=== PATIENT | female | born 1965 | race Caucasian/White ===

== ENCOUNTER 2020-04-24 09:07 | Emergency (ER) | payer OTHER, SELFPAY ==
[2020-04-24 09:20] VITALS: BP 129/72; PULSE 73; RESP 16; TEMP 36.8; O2SAT 99; BMI 23.1
--- NOTE | 2020-04-24 09:27 | ED.RECABL ---
HPI - Recheck/Abnormal Lab/Rx General Chief Complaint: Recheck/Abnormal Lab/Rx Stated Complaint: med refill Time Seen by Provider: 04/24/20 09:26 Source: patient Mode of arrival: ambulatory Limitations: no limitations History of Present Illness HPI narrative: 54 y/o female with history of depression, substance abuse on suboxone who ran out of her Effexor 4 days ago. She reports nausea, increased depression, lethargy, intermittent dizziness and not being right in the head due to not being on the medication. She has experienced withdrawal from Effexor before and says this feels similar. She has an virtual appointment at 2pm today with a provider to refill her Effexor. She did not want to want until this evening to get a dose. She is seeking a 1x dose of her Effexor 150mg. She denies SI, AH, VH. complaint: medication refill request Onset/Timin Initial visit (ago): day(s) Returns today for: request for prescription Description of abnormal result: Context: ran out of medication Associated symptoms: nausea and other (dizziness, confusion, depression) Related Data Allergies Allergy/AdvReac Type Severity Reaction Status Date / Time No Known Allergies Allergy Unverified 01/30/20 17:02 Review of Systems Review of Systems: Constitutional: No Fever, No Chills Gastrointestinal: + Nausea, No Vomiting, No Diarrhea Genitourinary: No Dysuria, No Urinary Frequency, No Hematuria Musculoskeletal: No joint pain, + Myalgias Skin: No Skin Lesions, No rash Neuro: No Weakness, No Numbness, + Dizziness, + Headache Psych: + Anxiety/Panic, + Depression PMFSH Past Medical History Attestation statement: The following information was validated with the patient. Medical History Depression Drug abuse Surgical History (Updated 04/24/20 @ 09:27 by Bella Lugo) H/O tubal ligation Previous section Social History Social History Advance Directives: No Advance Directives Information Provided: No Physical Exam Vital Signs: Vital Signs: Last Vital Signs Temp 98.3 F 04/24/20 09:20 Pulse 59 04/24/20 10:00 Resp 14 04/24/20 10:00 BP 109/70 04/24/20 10:00 Pulse Ox 98 04/24/20 10:00 Body Mass Index 23.1 Appearance: Alert. Oriented X3. No acute distress. Eyes: Pupils equal, round and reactive to light. ENT: Pharynx normal. Neck: Normal inspection. CVS: Normal heart rate and rhythm. Pulses normal. Respiratory: No respiratory distress. Breath sounds normal. Skin: Skin warm and dry. Normal skin color. Normal skin turgor. No rashes. Extremities: No lower extremity edema. Neuro: Oriented X 3. No motor deficit. No sensory deficit. Psych: tearful at times, good insight, no SI/HI, no VH/AH. Course Course Course Narrative: 54 y/o female presenting with Effexor withdrawal after 4 days without medication. Time frame is safe to administer full dose of 150 mg now. She is not seeking prescription re-fill she will get that this afternoon with her provider. She denies SI/HI, she is stable for discharge with plans to follow up with her provider and her counselor. Discharge Plan Discharge Clinical Impression: Encounter for medication refill Patient Disposition: Home, Self-Care Instructions: Venlafaxine (By mouth), Depression (ED) Additional Instructions: You were given a full dose of your Effexor XR 150 mg while in the ER today. It is very important that you follow up with your provider today as scheduled this afternoon for a full medication refill. If you develop worsening depression, suicidal thoughts call 911 or come back to the ER for further evaluation. Follow up with your therapist weekly as scheduled.
[2020-04-24] MEDS: Venlafaxine HCl ER 150 MG CAP.ER.24H PO (09:31)
[2020-04-24 10:00] VITALS: BP 109/70; PULSE 59; RESP 14; O2SAT 98
== END 2020-04-24 11:09 | disposition home or self-care (01) ==
PROVIDERS: Emergency Provider Emergency Medicine; PCP Internal Medicine
DX: R79.89 Other specified abnormal findings of blood chemistry (principal); R11.0 Nausea; R42 Dizziness and giddiness; Z76.0 Encounter for issue of repeat prescription; Z79.899 Other long term (current) drug therapy
CPT/HCPCS: 99283; 99284

== ENCOUNTER 2020-04-26 10:16 | Emergency (ER) | payer OTHER, SELFPAY ==
[2020-04-26 10:37] VITALS: BP 115/67; PULSE 67; RESP 18; TEMP 36.4; O2SAT 99; BMI 22.4
--- NOTE | 2020-04-26 11:00 | ED.MEDCLEAR ---
HPI - Medical Clearance General Chief complaint: Medical Clearance Stated complaint: med refill Time Seen by Provider: 04/26/20 11:00 History of Present Illness HPI Narrative: Patient is here with a complaint of out of her medication affects or for depression, she was here 2 days ago for the same reason was given 1 dose here, and expected to have soon meeting with her prescriber were she would get her month supply That failed to happen and she is here unsure of how she can get the rest of her medication, she denies any suicidal thoughts she has no thoughts of self-harm she is not hearing voices and simply wants a refill so she can maintain her medication which makes her feel stable and comfortable Related Information Previous Rx's Medication Instructions Recorded venlafaxine 150 mg PO DAILY #30 cap 04/26/20 Allergies Allergy/AdvReac Type Severity Reaction Status Date / Time No Known Allergies Allergy Verified 04/26/20 10:40 Review of Systems Review of Systems: No fever no chills no dizziness no weakness no suicidal thoughts no thoughts of self-harm no hearing voices no chest pain no cough no abdomen pain no headache Yes all other systems are reviewed and are negative [facility] Past Medical History [facility] Narrative: Patient has long history of depression for which she has been taking Effexor for a long time Medical History Depression Drug abuse Surgical History (Updated 04/24/20 @ 09:27 by Bella Lugo) H/O tubal ligation Previous section Social History Social History Advance Directives: No Advance Directives Information Provided: No Physical Exam Vital Signs: Vital Signs: Last Vital Signs Temp 97.6 F 04/26/20 10:37 Pulse 67 04/26/20 10:37 Resp 18 04/26/20 10:37 BP 115/67 04/26/20 10:37 Pulse Ox 99 04/26/20 10:37 Body Mass Index 22.4 Patient is A&O x3 comfortable relaxed, and cooperative Head is normocephalic atraumatic, pupils equal round react to light extraocular motions are intact The neck is supple Respiratory no distress Extremities full range of motion x4 Neuro no focal deficit, gait is normal, speech in interaction are normal Course Course Course Narrative: Patient is well-appearing, not in crisis now and will follow with her doctor and I gave her a 1 month supply Discharge Plan Discharge Clinical Impression: Medication refill Depression Qualifiers: Depression Type: unspecified Qualified Code(s): F32.9 - Major depressive disorder, single episode, unspecified Patient Disposition: Home, Self-Care Additional Instructions: I wrote a 1 month supply Follow with your prescriber and make sure he knows you got this 1 month supply here Return any concerns Prescriptions: New venlafaxine 150 mg capsule,extended release 24hr 150 mg PO DAILY Qty: 30 RF: 0
[2020-04-26] MEDS: Venlafaxine HCl ER 150 MG CAP.ER.24H PO (11:16)
== END 2020-04-26 11:19 | disposition home or self-care (01) ==
PROVIDERS: Emergency Provider Emergency Medicine; PCP Internal Medicine
DX: F32.9 Major depressive disorder, single episode, unspecified (principal); Z76.0 Encounter for issue of repeat prescription; Z79.899 Other long term (current) drug therapy
CPT/HCPCS: 99283

== ENCOUNTER 2020-06-11 12:20 | Emergency (ER) | payer OTHER, SELFPAY ==
[2020-06-11 12:22] VITALS: BP 133/83; PULSE 114; RESP 20; TEMP 36.8; O2SAT 96; BMI 20.9
--- NOTE | 2020-06-11 13:03 | ED.GENADULT ---
HPI - General Adult General Chief complaint: General Medical Stated complaint: med refill Time Seen by Provider: 06/11/20 13:03 Source: patient Mode of arrival: ambulatory Limitations: no limitations History of Present Illness HPI narrative: 54-year-old female with history of depression on Effexor 75 mg once daily in between prescribers she is here for medication refill she has an appointment coming up in 3 weeks was advised by provider office to come to emergency room for refill while she is waiting for appointment. Offers no other complaints. No SI or HI. No other medical complaints. She was on 150 in past does was changed couple months ago Onset (ago): day(s) Treatments prior to arrival: none Related Data Previous Rx's Medication Instructions Recorded venlafaxine 150 mg PO DAILY #30 cap 04/26/20 venlafaxine 75 mg PO DAILY 30 Days #30 tab 06/11/20 Allergies Allergy/AdvReac Type Severity Reaction Status Date / Time No Known Allergies Allergy Verified 04/26/20 10:40 Review of Systems Review of Systems: Constitutional: No Weight loss, No Fever, No Chills, No Night Sweats ENT/Mouth: Negative Eyes: Negative Cardiovascular: Negative Respiratory: Negative Gastrointestinal: Negative Musculoskeletal: No joint pain, No Myalgias Skin: No Skin Lesions, No rash Neuro: No Weakness, No Numbness, No Paresthesias, No Loss of Consciousness, No Dizziness, No Headache Psych: No Anxiety/Panic, No Depression, No SI/HI/AH/VH, No Social Issues Heme/Lymph: Negative Endocrine: Negative Yes all other systems are reviewed and are negative [facility] Past Medical History Medical History Depression Drug abuse Surgical History H/O tubal ligation Previous section Social History Social History Advance Directives: No Advance Directives Information Provided: No Physical Exam Vital Signs: Vital Signs: Last Vital Signs Temp 98.3 F 06/11/20 12:22 Pulse 114 H 06/11/20 12:22 Resp 20 06/11/20 12:22 BP 133/83 06/11/20 12:22 Pulse Ox 96 06/11/20 12:22 Body Mass Index 20.9 Reviewed Const: General: cooperative and healthy appearing; No acute distress or intoxicated appearing Nutritional Appearance: average body habitus Orientation/consciousness: patient oriented x3 HENMT: Head: Yes normal to inspection Ears: hearing grossly normal bilaterally Resp: Effort & Inspection: normal respiratory effort Cardio: Jugular venous distension: no JVD Skin: General skin exam: no rashes or lesions noted Neuro: General: patient oriented x3 Extrem: General: Yes normal to inspection Course Course Course Narrative: Will provide a courtesy prescription for her Effexor she has been on this for extended period time now still has her dose for today will provide her her disease script and has an appointment coming up with her new provider. It is noted that she has been here in the past for refill I emphasized the importance of having a med provider to monitor her symptoms and dose adjustment if needed. She verbalized understanding again has an appointment coming up. Discharge Plan Discharge Clinical Impression: Medication refill Patient Disposition: Home, Self-Care Instructions: Medicine Refill (ED) Prescriptions: New venlafaxine 75 mg tablet 75 mg PO DAILY 30 Days Qty: 30 RF: 0 No Action venlafaxine 150 mg capsule,extended release 24hr 150 mg PO DAILY Qty: 30 RF: 0 Referrals: Greta Coates MD [Primary Care Provider] - 1 week
== END 2020-06-11 13:28 | disposition home or self-care (01) ==
PROVIDERS: Emergency Provider Emergency Medicine; PCP Internal Medicine
DX: F32.9 Major depressive disorder, single episode, unspecified (principal); Z76.0 Encounter for issue of repeat prescription
CPT/HCPCS: 99283

== ENCOUNTER 2020-07-01 07:51 | Emergency (ER) | payer OTHER, SELFPAY ==
[2020-07-01 09:04] VITALS: BP 116/72; PULSE 74; RESP 16; TEMP 36.8; O2SAT 98; BMI 20.9
--- NOTE | 2020-07-01 09:15 | ED_ITS ---
HPI - General Adult General Chief complaint: General Medical Stated complaint: MED REFILL Time Seen by Provider: 07/01/20 09:14 Source: patient Mode of arrival: ambulatory Limitations: no limitations History of Present Illness HPI narrative: 54-year-old female history of depression patient been taking venlafaxine 150 mg daily for years, patient lost her therapist and supposed to go back to psychiatrist at the end of months patient ran out of her medication. No SI or HI no other medical complaint Related Data Previous Rx's Medication Instructions Recorded venlafaxine 150 mg PO DAILY #30 cap 04/26/20 venlafaxine 75 mg PO DAILY 30 Days #30 tab 06/11/20 venlafaxine 150 mg PO DAILY #30 cap 07/01/20 Allergies Allergy/AdvReac Type Severity Reaction Status Date / Time No Known Allergies Allergy Verified 04/26/20 10:40 Review of Systems Review of Systems: All other systems are reviewed and are negative Constitutional: Reports as per HPI and Reports no additional constitutional complaints Eyes: Reports as per HPI and Reports no additional eye complaints Reports system reviewed and no additional complaints, except as documented Cardiovascular: Reports as per HPI and Reports no additional cardiovascular complaints Respiratory: Reports as per HPI and Reports no additional respiratory complaints Gastrointestinal: Reports as per HPI and Reports no additional gastrointestinal complaints Genitourinary: Reports no additional female genitourinary complaints Musculoskeletal: Reports no additional musculoskeletal complaints Skin/Breast: Reports system reviewed and no additional complaints, except as docu Psychiatric: Reports no additional psychiatric complaints Endocrine: Reports no additional endocrine complaints Hematologic/Lymphatic: Reports no additional hematologic/lymphatic complaints Allergic/Immunologic: Reports no additional allergic/immunologic complaints Reports system reviewed and no additional complaints, except as documented and Reports Abnormal speech present [facility] Past Medical History Medical History Depression Drug abuse Surgical History H/O tubal ligation Previous section Social History Social History Smoking Status: Current some day smoker Smoked in Last 30 Days: Yes Use of substances other than those prescribed or required for medical reasons: Yes Substance Use Type: Marijuana Substance Use Frequency: Occasionally Advance Directives: No Advance Directives Information Provided: No Physical Exam Vital Signs: Vital Signs: Last Vital Signs Temp 98.2 F 07/01/20 09:04 Pulse 74 07/01/20 09:04 Resp 16 07/01/20 09:04 BP 116/72 07/01/20 09:04 Pulse Ox 98 07/01/20 09:04 Body Mass Index 20.9 Vital signs have been reviewed as appeared to be correct. Blood pressure normal. Heart rate normal. Respiration rate normal. Temperature normal. Oxygen saturation normal. Appearance: Alert. Oriented X3. No acute distress. Head: Normal external exam. Normocephalic. Atraumatic. No Franks signs noted. No raccoon eyes noted Eyes: PERRLA. EOMI. Conjunctiva and sclera normal. Eyelids normal. ENT: TM's Normal. Pharynx normal. Uvula midline. Moist mucous membranes. No trismus noted. No drooling noted. No muffled voice noted. Neck: Normal inspection. Neck supple. FROM. No adenopathy. Thyroid Normal. No meningeal signs. No neck mass noted. CVS: Normal heart rate and rhythm. Heart sound normal. No murmurs noted. Pulses normal throughout. Respiratory: No respiratory distress. Painless inspiration. Breath sounds normal. No wheezes/rales/rhonchi noted. Chest nontender. No accessory muscle usage noted or decreased air movement noted. Abdomen: Soft and nontender. Bowel sounds normal in all 4 quadrants. No distention noted. No organomegaly noted. No visible injury noted. Back: No CVA tenderness. Full range of motion noted. Skin: Skin warm and dry. Normal skin color. Normal skin turgor. No rashes/lesions/lacerations noted. Extremities: No lower extremity edema. Extremities exhibit normal range of motion. Extremities nontender. Neuro: Oriented X 3. No motor deficit. No sensory deficit. Reflexes normal. Psych: No SI or HI. Course Course Course Narrative: Chronic depression with no acute sign of SI or HI or schizophrenia. Will refill for 1 month 150 mg a day until she sees her primary doctor. Discharge Plan Discharge Clinical Impression: Medication refill Depression Qualifiers: Depression Type: major depressive disorder Major depression recurrence: recurrent Major depression episode severity: moderate Patient Disposition: Home, Self-Care Instructions: Depression (ED) Prescriptions: New venlafaxine 150 mg capsule,extended release 24hr 150 mg PO DAILY Qty: 30 RF: 0 No Action venlafaxine 150 mg capsule,extended release 24hr 150 mg PO DAILY Qty: 30 RF: 0 venlafaxine 75 mg tablet 75 mg PO DAILY 30 Days Qty: 30 RF: 0 Referrals: Greta Coates MD [Primary Care Provider] - 2 days
[2020-07-01] MEDS: Venlafaxine HCl ER 150 MG CAP.ER.24H PO (09:43)
== END 2020-07-01 09:45 | disposition home or self-care (01) ==
PROVIDERS: Emergency Provider Emergency Medicine; PCP Internal Medicine
DX: F33.1 Major depressive disorder, recurrent, moderate (principal); Z76.0 Encounter for issue of repeat prescription; F17.200 Nicotine dependence, unspecified, uncomplicated; F12.90 Cannabis use, unspecified, uncomplicated; Z71.6 Tobacco abuse counseling; Z79.899 Other long term (current) drug therapy
CPT/HCPCS: 99283

== ENCOUNTER 2021-06-07 01:31 | Emergency (ER) | payer OTHER, SELFPAY ==
--- NOTE | 2021-06-07 | ECG_ITS ---
Test Reason : SSRI MEDICATION Blood Pressure : / mmHG Vent. Rate : 065 BPM Atrial Rate : 065 BPM P-R Int : 154 ms QRS Dur : 104 ms QT Int : 402 ms P-R-T Axes : 078 051 071 degrees QTc Int : 418 ms Normal sinus rhythm Normal ECG No previous ECGs available Referred By: Generic ED Physician Electronically Signed By:EAMON MARC MD
[2021-06-07 01:37] VITALS: BP 93/53; PULSE 92; RESP 16; TEMP 36.8; O2SAT 100; BMI 21.6
--- NOTE | 2021-06-07 04:46 | ED_ITS ---
HPI - General Adult General Chief complaint: General Medical Stated complaint: psych med refill Time Seen by Provider: 06/07/21 03:54 Source: patient Mode of arrival: ambulatory History of Present Illness HPI narrative: 55-year-old female with history of depression wrist and it is for request on a refill of her venlafaxine. Patient states that she had to switch providers at [facility] [place] and that they were unable to see her in a timely manner and also unwilling to refill her prescription. Patient states that she is feeling well and denies any feelings of suicidal ideation, depressive symptoms, homicidal ideation, or AVH. Otherwise, she denies any recent fevers, chills, shortness of breath, chest pain/palpitations, GI or symptoms. Related Data Previous Rx's Medication Instructions Recorded venlafaxine 150 mg 150 mg PO DAILY #30 cap 04/26/20 capsule,extended release 24 hr venlafaxine 75 mg tablet 75 mg PO DAILY 30 Days #30 tab 06/11/20 venlafaxine 150 mg 150 mg PO DAILY #30 cap 07/01/20 capsule,extended release 24 hr venlafaxine 150 mg 150 mg PO DAILY 30 Days #30 cap 06/07/21 capsule,extended release 24 hr Allergies Allergy/AdvReac Type Severity Reaction Status Date / Time No Known Allergies Allergy Verified 06/07/21 01:45 Review of Systems Review of Systems: Pertinent positives and negatives as stated in HPI 10 point review of systems is otherwise negative. [facility] Past Medical History Source: nursing notes reviewed Medical History Depression Drug abuse Surgical History H/O tubal ligation Previous section Social History Social History Substance Use Type: Marijuana Advance Directives: No Physical Exam Vital Signs: Vital Signs: Last Vital Signs Temp 98.2 F 06/07/21 01:37 Pulse 92 06/07/21 01:37 Resp 16 06/07/21 01:37 BP 93/53 L 06/07/21 01:37 Pulse Ox 100 06/07/21 01:37 BMI result Body Mass Index 21.6 VITAL SIGNS: Reviewed. GENERAL: Chronically ill, appears older than stated age, in no acute distress. HEAD: Normocephalic/atraumatic EYES: PERRLA, EOMI OROPHARYNX: no oral lesions noted, posterior pharynx clear LUNGS: Normal breath sounds. No adventitious sounds or accessory muscle use. SpO2<100> CARDIOVASCULAR: Regular rate and rhythm without noted murmurs, no JVD or lower extremity edema. ABDOMEN: Soft, non-tender, non-distended with bowel sounds. MUSCULOSKELETAL: No tenderness, deformities, or effusions noted on gross inspection. EXTREMITIES: No cyanosis, clubbing or edema. SKIN: Inspection of the skin reveals no rashes NEUROLOGIC: Alert and oriented x 4. Strength and sensation to light touch were grossly intact x 4. PSYCH: Normal affect, calm and cooperative Course Course Course Narrative: 55-year-old female with history and clinical presentation difficulty getting refills on her venlafaxine and no evidence to suggest patient is decompensated today, she denies any SI/HI/AVH. On review of point of care glucose as well as EKG there are no acute findings that would preclude a 30 day supply of venlafaxine. This was discussed with the patient at bedside and she a cknowledges understanding. Medical Decision Making Lab Data Labs: Lab Results 06/07/21 Range/Units 04:49 POC Glucose 77 (60-115) mg/dL ECG Data Attestation: I personally reviewed and interpreted this ECG as follows: Prior ECG tracings: not available for review Interpretation: Sinus rhythm, HR-65, no STEMI, MN/QRS/QTC are within normal limits. Discharge Plan Discharge Clinical Impression: Medication refill, General medical exam Patient Disposition: Home, Self-Care Instructions: Normal Exam (ED), Medicine Refill (ED) Additional Instructions: 1. Resume medications as prescribed. 2. Call the office in the morning for further management of your medications. Return to the ER for worsening symptoms. Prescriptions: New venlafaxine 150 mg capsule,extended release 24hr 150 mg PO DAILY 30 Days Qty: 30 RF: 0 No Action venlafaxine 150 mg capsule,extended release 24hr 150 mg PO DAILY Qty: 30 RF: 0 venlafaxine 75 mg tablet 75 mg PO DAILY 30 Days Qty: 30 RF: 0 venlafaxine 150 mg capsule,extended release 24hr 150 mg PO DAILY Qty: 30 RF: 0 Referrals: Greta Coates MD [Primary Care Provider] - 2 days
[2021-06-07 04:54] LABS: Glucose, Whole Blood 77 mg/dL (60-115)
== END 2021-06-07 05:23 | disposition home or self-care (01) ==
PROVIDERS: Emergency Provider Student in an Organized Health Care Education/Training Program; PCP Internal Medicine
DX: Z76.0 Encounter for issue of repeat prescription (principal); F32.A Depression, unspecified
CPT/HCPCS: 82947; 93005; 99283

== ENCOUNTER 2021-07-08 01:30 | Emergency (ER) | payer OTHER, SELFPAY | END 2021-07-08 04:23 | disposition home or self-care (01) | PROVIDERS: Emergency Provider Emergency Medicine; PCP Internal Medicine | DX: Z76.0 Encounter for issue of repeat prescription (principal); F32.A Depression, unspecified; F17.200 Nicotine dependence, unspecified, uncomplicated | CPT/HCPCS: 99282 ==

== ENCOUNTER 2021-08-10 11:02 | Emergency (ER) | payer OTHER, SELFPAY ==
[2021-08-10 12:24] VITALS: BP 108/74; PULSE 78; RESP 16; TEMP 36.7; O2SAT 99; BMI 21.6
--- NOTE | 2021-08-10 12:51 | ED.GENADULT ---
HPI - General Adult General Chief complaint: General Medical Stated complaint: med refill Time Seen by Provider: 08/10/21 11:53 Source: patient Mode of arrival: ambulatory Limitations: no limitations History of Present Illness HPI narrative: Patient comes to emergency room requesting a medication refill for venlafaxine 150 mg. Patient has been on it for approximately 5 years. Patient ran out 2 days ago. Patient has been waiting to be seen by a new primary care physician, she has her new appointment in a week on August 16. Otherwise, patient has no complaints, denies SI or HI Related Data Previous Rx's Medication Instructions Recorded venlafaxine 150 mg 150 mg PO DAILY #30 cap 04/26/20 capsule,extended release 24 hr venlafaxine 75 mg tablet 75 mg PO DAILY 30 Days #30 tab 06/11/20 venlafaxine 150 mg 150 mg PO DAILY #30 cap 07/01/20 capsule,extended release 24 hr venlafaxine 150 mg 150 mg PO DAILY 30 Days #30 cap 06/07/21 capsule,extended release 24 hr venlafaxine 150 mg 150 mg PO DAILY #20 cap 08/10/21 capsule,extended release 24 hr (Effexor XR) Allergies Allergy/AdvReac Type Severity Reaction Status Date / Time No Known Allergies Allergy Verified 06/07/21 01:45 Review of Systems Review of Systems: Constitutional : No Weight loss, No Fever, No Chills, No Night Sweats, No Fatigue, No Malaise ENT/Mouth : No Hearing loss, No Ear Pain, No Nasal Congestion, No Sinus Pain, No Hoarseness, No sore throat, No Rhinorrhea, No Swallowing Difficulty Eyes: No Eye Pain, No Swelling, No Redness, No Foreign Body, No Discharge, No Vision Changes Cardiovascular : No Chest Pain, No SOB, No Dyspnea on Exertion, No Orthopnea, No Edema, No Palpitations Respiratory : No Cough, No Sputum, No Wheezing, No Smoke Exposure, No Dyspnea Gastrointestinal : No Nausea, No Vomiting, No Diarrhea, No Constipation, No abdominal Pain, No Hematochezia, No Melena Genitourinary : no irregular bleeding, No Dysuria, No Urinary Frequency, No Hematuria, No Urinary Incontinence, No Urgency, No Flank Pain, No Urinary Flow Changes, No Hesitancy Musculoskeletal : No joint pain, No Myalgias, No Joint Swelling Skin : No Skin Lesions, No rash Neuro : No Weakness, No Numbness, No Paresthesias, No Loss of Consciousness, No Dizziness, No Headache Psych : No Anxiety/Panic, No Depression, No SI/HI/AH/VH, No Social Issues, Heme/Lymph: No Bruising, No Bleeding,No Lymphadenopathy Endocrine : No Polyuria, No Polydipsia, No Temperature Intolerance PMF Past Medical History Medical History Depression Drug abuse Surgical History H/O tubal ligation Previous section Social History Social History Substance Use Type: Marijuana Advance Directives: No Advance Directives Information Provided: Yes Patient : No Physical Exam ED Vital Signs: Vital Signs - 24 hr 08/10/21 12:24 Temperature 98.0 F Pulse Rate 78 Respiratory Rate 16 Blood Pressure 108/74 Pulse Oximetry 99 BMI result Body Mass Index 21.6 Const Other: Appearance: Alert. Oriented X3. No acute distress. Eyes: Pupils equal, round and reactive to light. ENT: Pharynx normal. Neck: Normal inspection. Neck supple. CVS: Heart rate 78 Respiratory: No respiratory distress. Abdomen: Soft nondistended Skin: Skin warm and dry. Normal skin color. Extremities: Moves all extremities Neuro: Oriented X 3. No motor deficit. No sensory deficit. Moving all extremities. No slurred speech. CN 2 through 12 grossly intact Psych: calm, cooperative, normal affect Course Course Course Narrative: Patient has an appointment with her new PCP next week, patient has been waiting months to be seen. Patient will be provided with a prescription until she is seen by her PCP. Discharge Plan Discharge Clinical Impression: Encounter for medication refill Patient Disposition: Home, Self-Care Instructions: Medicine Refill (ED) Additional Instructions: Please follow-up with your primary care physician tomorrow. If you have any worsening or new symptoms, please return to the emergency room or call 911 Prescriptions: New venlafaxine [Effexor XR] 150 mg capsule,extended release 24hr 150 mg PO DAILY Qty: 20 0RF No Action venlafaxine 150 mg capsule,extended release 24hr 150 mg PO DAILY Qty: 30 0RF venlafaxine 75 mg tablet 75 mg PO DAILY 30 Days Qty: 30 0RF venlafaxine 150 mg capsule,extended release 24hr 150 mg PO DAILY Qty: 30 0RF venlafaxine 150 mg capsule,extended release 24hr 150 mg PO DAILY 30 Days Qty: 30 0RF
--- NOTE | 2021-08-10 13:15 | PC.NURSE ---
PT EVALUATED BY PROVIDER PLAN IS TO PROVIDE REFILL AND SEND HOME. PT AWARE AND AGREEABLE TO PLAN. REPORTS SHE HAS AN UPCOMING VISIT WITH HER PCP PT AWAKE, ALERT AND ORIENTED X 3. SKIN WARM AND DRY. RESP UNLABORED. DENIES N/V. NO C/O PAIN.
== END 2021-08-10 13:22 | disposition home or self-care (01) ==
PROVIDERS: Emergency Provider Emergency Medicine; PCP Internal Medicine
DX: Z76.0 Encounter for issue of repeat prescription (principal); Z79.899 Other long term (current) drug therapy; F12.90 Cannabis use, unspecified, uncomplicated
CPT/HCPCS: 99282; 99283

== ENCOUNTER 2022-01-07 08:14 | Emergency (ER) | payer OTHER, SELFPAY ==
[2022-01-07 09:33] VITALS: BP 102/70; PULSE 70; RESP 16; TEMP 36.6; O2SAT 96; BMI 21.7
--- NOTE | 2022-01-07 10:16 | ED.GENADULT ---
HPI - General Adult General Chief complaint: General Medical Stated complaint: med refill Time Seen by Provider: 01/07/22 10:10 Source: patient Mode of arrival: ambulatory Limitations: no limitations History of Present Illness HPI narrative: 56-year-old female with history of depression presents to the ER to request of refill of her antidepressant medication. She has been on Effexor for several years. She reports she has a new psychiatrist, with the 1st appointment being on February 03. She took her last dose of Effexor last night. She has been on 150 mg, extended release for several years. She has suffered through antidepressant withdrawal when she has run out in the past. She is very anxious and nervous this may happen again if she cannot get her medications refilled. She reports her depression is well controlled, not suicidal. complaint: Medication refill Onset (ago): hour(s) Relieving factors: medication Associated symptoms: denies other symptoms Treatments prior to arrival: none Related Data Previous Rx's Medication Instructions Recorded venlafaxine 150 mg 150 mg PO DAILY #30 caps 04/26/20 capsule,extended release 24 hr venlafaxine 75 mg tablet 75 mg PO DAILY 30 days #30 tabs 06/11/20 venlafaxine 150 mg 150 mg PO DAILY #30 caps 07/01/20 capsule,extended release 24 hr venlafaxine 150 mg 150 mg PO DAILY 30 days #30 caps 06/07/21 capsule,extended release 24 hr venlafaxine 150 mg 150 mg PO DAILY #20 caps 08/10/21 capsule,extended release 24 hr (Effexor XR) venlafaxine 150 mg 150 mg PO DAILY #30 caps 01/07/22 capsule,extended release 24 hr Allergies Allergy/AdvReac Type Severity Reaction Status Date / Time No Known Allergies Allergy Verified 06/07/21 01:45 Review of Systems Review of Systems: Constitutional: No Fever, No Chills Cardiovascular: No Chest Pain, No SOB Respiratory: No Cough, No Sputum Gastrointestinal: No Nausea, No Vomiting, No abdominal Pain Musculoskeletal: No joint pain, No Myalgias Neuro: No Weakness, No Dizziness, No Headache Psych: + Anxiety/Panic, + Depression Heme/Lymph: No Bruising, No Lymphadenopathy PMFSH Past Medical History Medical History Depression Drug abuse Surgical History H/O tubal ligation Previous section Social History Social History Substance Use Type: Marijuana Advance Directives: No Advance Directives Information Provided: No Physical Exam ED Vital Signs: Vital Signs - 24 hr 01/07/22 09:33 Temperature 97.8 F Pulse Rate 70 Respiratory Rate 16 Blood Pressure 102/70 Pulse Oximetry 96 Oxygen Delivery Method Room Air BMI result Body Mass Index 21.7 Appearance: Alert. Oriented X3. No acute distress. HEENT: normal inspection CVS: Normal heart rate and rhythm. Pulses normal. Respiratory: No respiratory distress. Skin: Skin warm and dry. Normal skin color. Normal skin turgor. No rashes. Extremities: normal inspection x4, normal ROM Neuro: Oriented X 3. Grossly normal, nonfocal. steady gait Course Course Course Narrative: This is a pleasant 56-year-old female with a history of depression on Effexor who presents to the ER requesting medication refills. She has an appointment less than a month away with no Effexor left. This is a new psychiatrist. Comfortable with giving her 1 month's worth of her affects her 150 mg which she has been on for years. Her mood is appropriate. She is very thankful for care. She is stable for discharge home with outpatient follow-up. Discharge Plan Discharge Clinical Impression: Depressed Patient Disposition: Home, Self-Care Instructions: Depression (ED) Additional Instructions: Follow-up with your provider as scheduled in January. Prescriptions: New venlafaxine 150 mg capsule,extended release 24hr 150 mg PO DAILY Qty: 30 0RF No Action venlafaxine 150 mg capsule,extended release 24hr 150 mg PO DAILY Qty: 30 0RF venlafaxine 75 mg tablet 75 mg PO DAILY 30 Days Qty: 30 0RF venlafaxine 150 mg capsule,extended release 24hr 150 mg PO DAILY Qty: 30 0RF venlafaxine 150 mg capsule,extended release 24hr 150 mg PO DAILY 30 Days Qty: 30 0RF venlafaxine [Effexor XR] 150 mg capsule,extended release 24hr 150 mg PO DAILY Qty: 20 0RF
== END 2022-01-07 10:48 | disposition home or self-care (01) ==
PROVIDERS: Emergency Provider Emergency Medicine
DX: F33.1 Major depressive disorder, recurrent, moderate (principal); Z76.0 Encounter for issue of repeat prescription; Z79.899 Other long term (current) drug therapy
CPT/HCPCS: 99282

== ENCOUNTER 2022-02-20 15:30 | Emergency (ER) | payer OTHER, SELFPAY ==
[2022-02-20 15:35] VITALS: BP 125/73; PULSE 86; RESP 18; TEMP 36.3; O2SAT 95; BMI 21.6
--- NOTE | 2022-02-20 19:05 | ED.GENADULT ---
HPI - General Adult General Chief complaint: General Medical Stated complaint: Med refill Time Seen by Provider: 02/20/22 19:05 Source: patient Mode of arrival: ambulatory Limitations: no limitations History of Present Illness HPI narrative: 56-year-old female presents for medication refill. She is in between providers, has an appointment on March 15, needs a refill for her Effexor 150 mg XL. She has been out of her medications for 2 days. She does not describe any suicidal or homicidal ideation, and states to feel well. Onset (ago): day(s) (2) Severity: mild Associated symptoms: denies other symptoms Related Data Previous Rx's Medication Instructions Recorded venlafaxine 150 mg 150 mg PO DAILY #30 caps 04/26/20 capsule,extended release 24 hr venlafaxine 75 mg tablet 75 mg PO DAILY 30 days #30 tabs 06/11/20 venlafaxine 150 mg 150 mg PO DAILY #30 caps 07/01/20 capsule,extended release 24 hr venlafaxine 150 mg 150 mg PO DAILY 30 days #30 caps 06/07/21 capsule,extended release 24 hr venlafaxine 150 mg 150 mg PO DAILY #20 caps 08/10/21 capsule,extended release 24 hr (Effexor XR) venlafaxine 150 mg 150 mg PO DAILY #30 caps 01/07/22 capsule,extended release 24 hr venlafaxine 150 mg tablet,extended 150 mg PO DAILY #30 tabs 02/20/22 release 24 hr Allergies Allergy/AdvReac Type Severity Reaction Status Date / Time No Known Allergies Allergy Verified 06/07/21 01:45 Review of Systems Review of Systems: Constitutional: No Fever, No Chills Cardiovascular: No Chest Pain, No SOB Respiratory: No Cough, No Dyspnea Gastrointestinal: No Nausea, No Vomiting, No Diarrhea, No abdominal Pain Genitourinary: No Dysuria, No Hematuria Musculoskeletal: No joint pain, No Myalgias, No Joint Swelling Skin: No Skin lacerations, No rash Neuro: No Weakness, No Numbness, No Paresthesias, No Loss of Consciousness, No Dizziness, No Headache Psych: No Anxiety/Panic, No Depression Yes all other systems are reviewed and are negative PMFSH Past Medical History Attestation statement: The following information was validated with the patient. Source: old records reviewed Medical History Depression Drug abuse Surgical History H/O tubal ligation Previous section Social History Social History Substance Use Type: Marijuana Advance Directives: No Advance Directives Information Provided: No Physical Exam ED Vital Signs: Vital Signs - 24 hr 02/20/22 15:35 Temperature 97.4 F Pulse Rate 86 Respiratory Rate 18 Blood Pressure 125/73 Pulse Oximetry 95 Oxygen Delivery Method Room Air BMI result Body Mass Index 21.6 Appearance: Alert. Oriented X3. No acute distress. Eyes: Pupils equal, round and reactive to light. ENT: Pharynx normal. Neck: Normal inspection. Neck supple. CVS: Normal heart rate and rhythm. Pulses normal. Respiratory: No respiratory distress. Breath sounds normal. Abdomen: Soft and nontender. Skin: Skin warm and dry. Normal skin color. Normal skin turgor. Extremities: No lower extremity edema. Gait well-balanced well coordinated. Neuro: No motor deficit. No sensory deficit. Cranial nerves 2-12 intact. Course Course Course Narrative: 56-year-old female presents for medication refill. She is in between providers and has an appointment on March 15. She has been on venlafaxine for quite some time and this medication that is on her historical visits. Will order venlafaxine 150 mg XL. Patient has no physical complaints. States to feel well. Patient verbalized understanding of and agrees to plan of care discharge home. Verbalized understanding of signs and symptoms indicating need for emergent intervention. Medical Decision Making MDM Narrative Medical decision making narrative: Medication refill Discharge Plan Discharge Clinical Impression: Medication refill Patient Disposition: Home, Self-Care Instructions: Medicine Refill (ED) Additional Instructions: You presented for medication refill. I refilled venlafaxine 150 mg XL. Please take this medication as directed Continue with your appointment as scheduled. Thank you for choosing this emergency department for evaluation. Please follow-up with primary care physician as needed. Return to the emergency department for any new, concerning, or worsening symptoms. Prescriptions: New venlafaxine 150 mg tablet extended release 24hr 150 mg PO DAILY Qty: 30 2RF No Action venlafaxine 150 mg capsule,extended release 24hr 150 mg PO DAILY Qty: 30 0RF venlafaxine 75 mg tablet 75 mg PO DAILY 30 Days Qty: 30 0RF venlafaxine 150 mg capsule,extended release 24hr 150 mg PO DAILY Qty: 30 0RF venlafaxine 150 mg capsule,extended release 24hr 150 mg PO DAILY 30 Days Qty: 30 0RF venlafaxine [Effexor XR] 150 mg capsule,extended release 24hr 150 mg PO DAILY Qty: 20 0RF venlafaxine 150 mg capsule,extended release 24hr 150 mg PO DAILY Qty: 30 0RF Discharge Date/Time: 02/20/22 20:23
== END 2022-02-20 20:23 | disposition home or self-care (01) ==
PROVIDERS: Emergency Provider Emergency Medicine Emergency Medical Services
DX: Z76.0 Encounter for issue of repeat prescription (principal); Z79.899 Other long term (current) drug therapy
CPT/HCPCS: 99281; 99282

== ENCOUNTER 2023-12-04 12:45 | Emergency (ER) | payer OTHER, SELFPAY ==
[2023-12-04 12:58] VITALS: BP 131/89; PULSE 80; RESP 18; TEMP 37; O2SAT 98; BMI 18.6
--- NOTE | 2023-12-04 13:04 | ED_ITS ---
HPI - General Adult General Chief complaint: General Medical Stated complaint: Medication refill Time Seen by Provider: 12/04/23 13:08 Source: patient and RN notes reviewed Mode of arrival: ambulatory Limitations: no limitations History of Present Illness ED Provider: Lois Canela PA-C HPI narrative: This is a 58-year-old female, with a history of depression, who presents emergency department for medication refill. Patient states that she has been on Effexor for many years and states that 2 days ago she ran out of her medication. She states that she is in the process of getting a new provider as her old provider she does not have a great relationship with. She denies any SI or HI. She does endorse increased depression. She states that she has plenty of resources whom she can have a support system with. Denies any chest pain, shortness of breath, or any other symptoms. No other complaints or concerns at this time. MD complaint: Med refill Relieving factors: none Exacerbating factors: none Associated symptoms: denies other symptoms Treatments prior to arrival: none Related Data Previous Rx's ?Medication ?Instructions ?Recorded venlafaxine 150 mg 150 mg PO DAILY #30 caps 04/26/20 capsule,extended release 24 hr venlafaxine 75 mg tablet 75 mg PO DAILY 30 days #30 tabs 06/11/20 venlafaxine 150 mg 150 mg PO DAILY #30 caps 07/01/20 capsule,extended release 24 hr venlafaxine 150 mg 150 mg PO DAILY 30 days #30 caps 06/07/21 capsule,extended release 24 hr venlafaxine 150 mg 150 mg PO DAILY #20 caps 08/10/21 capsule,extended release 24 hr (Effexor XR) venlafaxine 150 mg 150 mg PO DAILY #30 caps 01/07/22 capsule,extended release 24 hr venlafaxine 150 mg tablet,extended 150 mg PO DAILY #30 tabs 02/20/22 release 24 hr venlafaxine 150 mg 150 mg PO DAILY 30 days #30 caps 12/04/23 capsule,extended release 24 hr Allergies Allergy/AdvReac Type Severity Reaction Status Date / Time No Known Allergies Allergy Verified 12/04/23 13:02 Review of Systems Review of Systems: Yes all other systems are reviewed and are negative Constitutional: Constitutional: Reports as per [facility] Past Medical History Medical History Depression Drug abuse Surgical History H/O tubal ligation Previous section Social History Social History Substance Use Type: Marijuana Advance Directives: No Advance Directives Information Provided: No Do you have a plan to hurt others: No Plan Physical Exam ED Vital Signs: Vital Signs - 24 hr 12/04/23 12:58 12/04/23 13:09 Temperature 98.6 F 98.6 F Pulse Rate 80 80 Respiratory Rate 18 18 Blood Pressure 131/89 131/89 Pulse Oximetry 98 98 Oxygen Delivery Method Room Air Room Air BMI result Body Mass Index 18.6 Const General: cooperative, comfortable and no acute distress Orientation/consciousness: patient oriented x3 Limitations: no limitations HENMT Head: Yes normal to inspection, Yes normocephalic and Yes atraumatic Ears: hearing grossly normal bilaterally General nose exam: Normal external nose present Face and sinus: Yes normal facial exam Mouth: Normal oral and palatal mucosa present, oropharynx normal and moist mucous membranes Throat: Yes posterior oropharynx normal Eyes General: appearance normal, both eyes and all related structures Eyelids: Yes eyelids normal Conjunctivae: conjunctivae normal Sclerae: sclerae normal Pupils: Equal, round and reactive pupils present EOM: EOMs intact bilaterally Neck Neck: Yes normal visual inspection, Yes full ROM and Yes no lymphadenopathy Lymphatic: no lymphadenopathy noted Chest Chest palpation & inspection: normal inspection of the chest Resp Effort & Inspection: normal respiratory effort and able to speak in complete sentences Auscultation: clear to auscultation bilaterally, no crackles, no rales, no rhonchi and no wheezes Cardio Rate: regular rate Rhythm: regular rhythm Heart sounds: S1 normal heart sound present and S2 normal heart sound present GI Inspection: Yes normal to inspection Skin General skin exam: no rashes or lesions noted Trauma: no lacerations or abrasions Wounds: no wounds Neuro General: patient oriented x3 and moves all extremities Cranial nerves: Yes Equal, round and reactive pupils present Extrem General: Yes normal to inspection Right upper extremity: normal to inspection Left upper extremity: normal to inspection Right lower extremity: normal to inspection Left lower extremity: normal to inspection Medical Decision Making Medical Decision Making MDM Narrative: This is a 58-year-old female, with a history of depression presenting to the emergency department for medication refill. She ran out of her Effexor medication 2 days ago. She states that she is in the process of getting a new provider as she does not like the 1 that she currently has. On arrival, vital signs within normal limits. She does not endorse any SI or HI. I discussed with the care team if there is any external resources that she can utilize for getting a psychiatrist sooner. She has been seen here multiple times in the emergency room for Effexor medication refill, I stressed the importance of following up with a provider as we can not manage her appropriately. She understands and agrees with plan. Given strict return precautions. Patient stable for discharge. Differential Diagnosis Differential Diagnoses: The differential diagnosis associated with the presentation includes Med refill, anxiety, depression Discharge Plan Discharge Clinical Impression: Depression Patient Disposition: Home, Self-Care Instructions: Depression (ED) Additional Instructions: You were seen in the emergency room for a medication refill. Please continue taking your prescribed Effexor. Please utilize the resources provided to you to get a new prescribing provider. If any new or worsening symptoms occur including but not limited to worsening depression, suicidal ideation, homicidal ideation, chest pain or shortness of breath, please return for re-evaluation. Prescriptions: New venlafaxine 150 mg capsule,extended release 24hr 150 mg PO DAILY 30 Days Qty: 30 0RF No Action venlafaxine 150 mg capsule,extended release 24hr 150 mg PO DAILY Qty: 30 0RF venlafaxine 75 mg tablet 75 mg PO DAILY 30 Days Qty: 30 0RF venlafaxine 150 mg capsule,extended release 24hr 150 mg PO DAILY Qty: 30 0RF venlafaxine 150 mg capsule,extended release 24hr 150 mg PO DAILY 30 Days Qty: 30 0RF venlafaxine [Effexor XR] 150 mg capsule,extended release 24hr 150 mg PO DAILY Qty: 20 0RF venlafaxine 150 mg capsule,extended release 24hr 150 mg PO DAILY Qty: 30 0RF venlafaxine 150 mg tablet extended release 24hr 150 mg PO DAILY Qty: 30 2RF Interventions: ED Discharge Assessment Last Done: 12/04/23 13:09 Discharge Date/Time: 12/04/23 13:12 Print Language: Faroese
[2023-12-04 13:09] VITALS: BP 131/89; PULSE 80; RESP 18; TEMP 37; O2SAT 98
== END 2023-12-04 13:12 | disposition home or self-care (01) ==
PROVIDERS: Emergency Provider Emergency Medicine
DX: F33.1 Major depressive disorder, recurrent, moderate (principal); Z76.0 Encounter for issue of repeat prescription; Z79.899 Other long term (current) drug therapy
CPT/HCPCS: 99282; 99283

== ENCOUNTER 2023-12-07 00:18 | Emergency (ER) | payer OTHER, SELFPAY ==
[2023-12-07 00:18] VITALS: BP 119/92; PULSE 90; RESP 18; TEMP 36.8; O2SAT 97
[2023-12-07 00:35] LABS: MANUAL DIFF FLAG NO
[2023-12-07 00:38] LABS: Basophils Absolute Auto 0.1 X10*3/uL (0.0-0.2); Basophils Percent Auto 0.7 % (0-2); Eosinophils Absolute Auto 0.1 X10*3/uL (0.0-0.4); Eosinophils Percent Auto 0.7 % (0-4); Hemoglobin 13.6 g/dl (12.0-16.0); Imm Gran Abs Auto 0.04 X10*3/uL (0.00-0.03); Imm Gran Pct Auto 0.4 % (0.0-0.4); Lymphocytes Percent Auto 18.6 % (20-40); Mean Corpuscular HGB Conc 34.9 g/dl (31.0-35.0); Mean Corpuscular Hemoglobin 31.9 pg (27.0-33.0); Mean Corpuscular Volume 91.5 fL (80.0-98.0); Mean Platelet Volume 9.1 fL (9.4-12.3); Monocytes Absolute Auto 0.7 X10*3/uL (0.1-1.2); Neutrophils Absolute Auto 7.6 x10*3/uL (2.0-8.3); Neutrophils Percent Auto 72.6 % (45-73); Platelet Count 332 X10*3/uL (160-400); Red Blood Count 4.26 X10*6/uL (4.20-5.50); Red Cell Distribution Width 13.3 % (11.0-16.0); White Blood Count 10.5 X10*3/uL (4.8-10.8)
[2023-12-07 00:53] LABS: Alanine Aminotransferase 25 U/L (0-31); Albumin Level 4.2 g/dL (3.5-5.0); Alkaline Phosphatase 69 U/L (39-117); Anion Gap 15 (12-20); Aspartate Amino Transferase 34 U/L (5-31); Bilirubin Total 0.4 mg/dL (0.0-1.0); Blood Urea Nitrogen 14 mg/dL (9-16); Carbon Dioxide 23 mmol/L (22-29); Chloride 109 mmol/L (96-108); Creatinine Clr Calc Pharmacy 73.1; Estimated Glomerular Filt Rate > 60; Glucose Random 195 mg/dL (60-115); Potassium 3.5 mmol/L (3.3-5.1); Sodium 143 mmol/L (135-145)
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
[2023-12-07 01:13] LABS: COVID-19 Test Negative (Negative); IDNOW Serial# 08D9AD1C
[2023-12-07 01:15] LABS: Appearance Urine Cloudy; Color Urine Yellow; Glucose Urine UA Negative (Negative); Leukocyte Esterase Urine Small (1+) (Negative); Nitrite Urine Negative (Negative); PH 5.5 (5.0-9.0); Specific Gravity - Urine 1.025 (1.005-1.025); UMIC TRIGGER UA YES; Urine Blood Negative (Negative); Urine Ketones Trace mg/dL (Negative); Urine Protein Trace mg/dL (Neg-Trace)
[2023-12-07 01:17] LABS: Bacteria Urine 4+ (None Seen); Hyaline Casts Urine 0-2 /LPF (0-2); RBC Urine 0-2 /HPF (0-2); WBC Urine 21-50 /HPF (0-5)
[2023-12-07 01:25] LABS: Amphetamine Screen Urine Not Detected (Not Detect); Barbiturates, Urine Not Detected (Not Detect); Benzodiazepines Screen Urine Not Detected (Not Detect); Buprenorphine Scr Positive (Not Detect); Cannabinoid Screen Urine POSITIVE (Not Detect); Cocaine Screen Urine Not Detected (Not Detect); Fentanyl, urine Not Detected (Not Detect); Methadone Screen, Urine Not Detected (Not Detect); Opiate Screen Urine Not Detected (Not Detect); Oxycodone Screen Urine Not Detected (Not Detect); Phencyclidine Screen Urine Not Detected (Not Detect)
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
[2023-12-07] MEDS: Acetaminophen 325 MG TABLET 650 MG PO (06:42)
[2023-12-07 08:30] VITALS: BP 115/72; PULSE 78; RESP 14; TEMP 36.6; O2SAT 94
--- NOTE | 2023-12-07 09:34 | MHC.CARE ---
Sister Deloris Ramirez [phone] called, she is concerned and has information to share with evaluating clinician, is available any time
--- NOTE | 2023-12-07 10:14 | MHC.RECOVRN ---
Briefly met with pt regarding Suboxone. Plan for pt to present as walk in to [facility] upon discharge. CARE Team and RN aware.
[2023-12-07 10:54] VITALS: BP 115/72; PULSE 78; RESP 14; TEMP 36.6; O2SAT 94
--- NOTE | 2023-12-07 12:25 | MHC.CARE ---
Pt referred for 3 day follow up and referral activated with [facility] staff Chap[facility] who confirms referral was received.
--- NOTE | 2023-12-07 12:46 | MHC.CARE ---
RAD Team faxed a referral to [facility] for this individual. Follow up call will be made tomorrow to check on status.
== END 2023-12-07 11:07 | disposition home or self-care (01) ==
PROVIDERS: Emergency Provider Internal Medicine
DX: F33.1 Major depressive disorder, recurrent, moderate (principal); R45.851 Suicidal ideations; N39.0 Urinary tract infection, site not specified; Z79.899 Other long term (current) drug therapy; Z11.52 Encounter for screening for COVID-19
CPT/HCPCS: 80053; 80307; 81001; 85025; 87635; 99284; S9485

== ENCOUNTER 2023-12-18 13:48 | Emergency (ER) | payer OTHER, SELFPAY ==
[2023-12-18 14:33] VITALS: BP 108/76; PULSE 109; RESP 16; TEMP 36.7; O2SAT 98; BMI 17.9
--- NOTE | 2023-12-18 14:41 | ED_ITS ---
HPI - General Adult General Chief complaint: General Medical Stated complaint: suboxone withdrawal Time Seen by Provider: 12/18/23 14:43 Source: patient Mode of arrival: ambulatory History of Present Illness ED Provider: Heraclio ROSARIO HPI narrative: 58 yold female with pmh of opoid abuse presents to the ED for suboxone withdrawal. patient last dose was last week. Patient denies any recent drug use. Related Data Home Medications ?Medication ?Instructions ?Recorded ?Confirmed buprenorphine 8 mg-naloxone 2 mg 1 film sublingual DAILY 12/07/23 12/07/23 sublingual film (Suboxone) buprenorphine 8 mg-naloxone 2 mg film 12/18/23 sublingual film (Suboxone) Previous Rx's ?Medication ?Instructions ?Recorded venlafaxine 150 mg 150 mg PO DAILY #30 caps 04/26/20 capsule,extended release 24 hr cefuroxime axetil 500 mg tablet 500 mg PO BID #14 tabs 12/07/23 Allergies Allergy/AdvReac Type Severity Reaction Status Date / Time No Known Allergies Allergy Verified 12/18/23 14:36 Review of Systems Review of Systems: suboxone withdrawal Yes all other systems are reviewed and are negative [facility] Past Medical History Medical History Depression Drug abuse Surgical History H/O tubal ligation Previous section Social History Social History Substance Use Type: Marijuana Advance Directives: No Physical Exam ED Vital Signs: Vital Signs - 24 hr 12/18/23 14:33 12/18/23 15:44 Temperature 98.1 F 98.1 F Pulse Rate 109 H 109 H Respiratory Rate 16 16 Blood Pressure 108/76 108/76 Pulse Oximetry 98 98 Oxygen Delivery Method Room Air Room Air BMI result Body Mass Index 17.9 Const General: cooperative, healthy appearing, comfortable, no acute distress, well developed, alert, awake and Physically active Orientation/consciousness: patient oriented x3 HENMT Head: Yes normal to inspection, Yes No palpable skull fracture present, Yes normocephalic and Yes atraumatic Ears: hearing grossly normal bilaterally, external ears normal, TM's normal bilaterally, TM normal on the right, TM normal on the left, EAC's normal, mastoids normal and no periauricular adenopathy Eyes General: appearance normal, both eyes and all related structures Neck Neck: Yes normal visual inspection, Yes full ROM, Yes no lymphadenopathy, Yes no meningeal signs, Yes trachea midline, Yes supple, No anterior neck swelling and No tender Chest Chest palpation & inspection: normal inspection of the chest and normal palpation of entire chest wall Breast/axilla inspection: normal inspection of the breasts Resp Effort & Inspection: normal respiratory effort and able to speak in complete sentences Auscultation: clear to auscultation bilaterally Cardio Jugular venous distension: no JVD Heart sounds: S1 normal heart sound present and S2 normal heart sound present GI Inspection: Yes normal to inspection and No abdominal wall ecchymosis Palpation (GI): Soft to palpation, not firm, nontender, no guarding and not rigid General: Yes no CVA tenderness Back/Spine/Pelvis Back: no CVA tenderness and No back tenderness Skin General skin exam: no rashes or lesions noted, elasticity normal and turgor normal Neuro General: patient oriented x3, gait normal, tone normal, moves all extremities, Normal light touch and pain sensation, no meningeal signs, no focal motor deficits and CN's II-XI intact bilaterally Extrem General: Yes normal to inspection, Yes full ROM and Yes capillary refill normal Psych Appearance: grossly normal, well kempt and not disheveled Course Course Course Narrative: RME: done by SANDIP Ley. 58-year-old female presents to ED for withdrawal from Suboxone. Her last dose was this past and it was half of the Suboxone 8 milligram/milligram fell. Patient denies using any drugs. Provider sent her to the ED. Medications Administered Discontinued Medications Generic Name Dose Route Start Last Admin Trade Name Freq PRN Reason Stop Dose Admin Buprenorphine/Naloxone 1 film 12/18/23 15:02 12/18/23 15:07 Buprenorphine/Naloxone 8/2 Mg Film SUBLINGUAL 12/18/23 15:03 1 film ONCE ONE Administration Medical Decision Making Medical Decision Making MDM Narrative: 58-year-old female presents to ED stating withdrawal from Suboxone. Patient denies any recent drug use. Patient states last dose was this past . Patient states her provider states get a dose in the ED today and she will give her a prescription was see come to the office tomorrow. Case was discussed with recovery psych client application support specialist jimmy Mckeon and adriana rogers who states patient can receive her dose and follow-up with the [facility] in the morning. Patient does not want urine drug screen and states she is true and honest that there was no drug use. Patient informed if there was drug use and I gave her Suboxone within 48 hours can to severe withdrawal. P atient denies any drug use. patient explained worrisome signs and infomed to return to the ED. Differential Diagnosis Differential Diagnoses: The differential diagnosis associated with the presentation includes (Suboxone withdrawal) Consult Healthcare Provider Management of the patient was discussed with: Cylinder Steamer (community relations specialist Adriana rogers. Substance abuse [facility] [place] Care associate embalmer/funeral director Jimmy Mckeon) Independent Historian Clinical information obtained from an independent historian. History obtained from or confirmed by: Other (Patient) External Record Review External record reviewed: Other (Prior visits) Discharge Plan Discharge Clinical Impression: Encounter for monitoring Suboxone maintenance therapy Patient Disposition: Home, Self-Care Instructions: Medicine Refill (ED) Additional Instructions: Recommend follow-up with [facility] tomorrow morning. Phone number [phone]. Address [address] [place] [address], [place] [address], [facility], [address]. Return to the ED immediately for any abdominal pain, nausea, vomiting, fever, chills, agitation, suicidal, homicidal, or any other concerning symptoms. Prescriptions: No Action venlafaxine 150 mg capsule,extended release 24hr 150 mg PO DAILY Qty: 30 0RF buprenorphine-naloxone [Suboxone] 8-2 mg film 1 film sublingual DAILY cefuroxime axetil 500 mg tablet 500 mg PO BID Qty: 14 0RF buprenorphine-naloxone [Suboxone] 8-2 mg film Interventions: ED Discharge Assessment Last Done: 12/18/23 15:44 Discharge Date/Time: 12/18/23 15:45 Print Language: Icelandic
[2023-12-18] MEDS: Buprenorphine/Naloxone 8/2 mg FILM 1 FILM SUBLINGUAL (15:07)
--- NOTE | 2023-12-18 15:13 | PC.NURSE ---
pt medicated per MAR
[2023-12-18 15:44] VITALS: BP 108/76; PULSE 109; RESP 16; TEMP 36.7; O2SAT 98
== END 2023-12-18 15:45 | disposition home or self-care (01) ==
PROVIDERS: Emergency Provider Emergency Medicine
DX: F11.23 Opioid dependence with withdrawal (principal); Z79.899 Other long term (current) drug therapy
CPT/HCPCS: 99282; 99283

== ENCOUNTER 2023-12-19 12:05 | Outpatient (AMB) | payer OTHER, SELFPAY ==
--- NOTE | 2023-12-19 13:10 | A.OFFVISCC_ITS ---
Intake Visit Reasons: mat intake Allergies No Known Allergies Allergy (Verified 12/18/23 14:36) HPI HPI mat intake: Details: Patient presents as walk in for evaluation and treatment of OUD She reports being prescribed Suboxone for several years and has recently stopped seeing her provider. She was prescribed 8mg daily--however was taking 16mg daily several days per week due to increasing stress Her last opiate use was was in 1997 and last crack cocaine use in 2011. Full substance use history obtained by RN and reviewed with patient Medical History: Denies any chronic medical conditions, however has not been seen by PCP in several years labs completed at [facility] when she presented for suboxone refill BH History: -prescribed Effexor--has been on medication for several years -recently called [facility] to get engaged in care She is tearful during visit has been dealing with past trauma and having a hard time with it increasing depression. lack of energy and motivation, increased tearfulness PFSH Medical History Depression Drug abuse Surgical History H/O tubal ligation Previous section Social History Substance Use Type: Marijuana Review of Systems Const Reports as per HPI Physical Exam Const General: cooperative, healthy appearing, anxious and well groomed Nutritional Appearance: thin Orientation/consciousness: patient oriented x3 Limitations: no limitations Neuro General: patient oriented x3 Psych Appearance: well kempt Speech and movement: Normal speech and movement present Affect: Sad affect present and Anxious affect present Attitude: cooperative Thought process: Normal thought process present Thought content: Normal thought content present Insight: Good insight present (Psych) Judgement: Good judgement present (Psych) Assessment & Plan Assessment & Plan (1) Opioid use disorder, severe, in sustained remission: Code(s): F11.21 - Opioid dependence, in remission Category: Medical Plan: * Agreeable to increasing dose to 16mg daily for now * will follow up with [facility] for therapy * follow up 2 weeks Medications: Changed From buprenorphine-naloxone 8-2 mg (Suboxone) To buprenorphine-naloxone 8-2 mg (Suboxone) 2 film sublingual DAILY 30 ea 0RF Refilled venlafaxine ER 150 mg PO DAILY 90 caps 0RF MAT Intake Nursing Intake Reason for visit: Establish care for continuation of suboxone Are you currently using?: No What are you taking?: Suboxone When was your last use?: approx 10 years ago What is your source of income?: Works for a [employer] What is your current relationship status?: Single Current PCP: N/A Date of last visit: its been years >5. Referral Source: nephew is a pt here [facility] she says he told me to come, and that he feels very safe here Substance Abuse History Substance Abuse History (includes route, frequency and quantity): Heroin (last use 1997), Cocaine ( years ago ), Marijuana and Tobacco
== END 2023-12-19 12:06 | disposition home or self-care (01) ==
LOC: HO.HCC 12:05
PROVIDERS: Visit Provider Nurse Practitioner Psychiatric/Mental Health
DX: F11.21 Opioid dependence, in remission (principal)
CPT/HCPCS: 99204

== ENCOUNTER → 2023-12-19 12:05 | Outpatient (BNVA) | payer OTHER, SELFPAY | PROVIDERS: Visit Provider Nurse Practitioner Psychiatric/Mental Health | DX: F11.21 Opioid dependence, in remission (principal); Z51.81 Encounter for therapeutic drug level monitoring | CPT/HCPCS: 99202 ==

== ENCOUNTER 2024-01-08 14:29 | Outpatient (AMB) | payer OTHER, SELFPAY ==
--- NOTE | 2024-01-08 14:55 | A.OFFVISCC_ITS ---
Intake Visit Reasons: MAT Allergies No Known Allergies Allergy (Verified 12/18/23 14:36) HPI HPI MAT: Details: Patient presents for followup Suboxone dose effectiver--has been sleeping better Tearful--depressive sx Will be reaching out to [facility] and [facility] to schedule appt PFSH Medical History Depression Drug abuse Surgical History H/O tubal ligation Previous section Social History Substance Use Type: Marijuana Review of Systems Const Reports as per HPI and Reports no additional complaints Physical Exam Const General: cooperative, healthy appearing, no acute distress and well groomed Assessment & Plan Assessment & Plan (1) Opioid use disorder, severe, in sustained remission: Code(s): F11.21 - Opioid dependence, in remission Category: Medical Plan: * continue suboxone at current dose * follow up 3 weeks
== END 2024-01-08 15:41 | disposition home or self-care (01) ==
PROVIDERS: Visit Provider Nurse Practitioner Psychiatric/Mental Health
DX: F11.21 Opioid dependence, in remission (principal)
CPT/HCPCS: 99213

== ENCOUNTER → 2024-01-08 14:29 | Outpatient (BNVA) | payer OTHER, SELFPAY | PROVIDERS: Visit Provider Nurse Practitioner Psychiatric/Mental Health | DX: F11.21 Opioid dependence, in remission (principal) | CPT/HCPCS: 99212 ==

== ENCOUNTER 2024-02-01 09:04 | Outpatient (AMB) | payer OTHER, SELFPAY ==
--- NOTE | 2024-02-01 09:15 | A.OFFVISCC_ITS ---
Intake Visit Reasons: MAT Office Allergies No Known Allergies Allergy (Verified 12/18/23 14:36) HPI HPI MAT Office: Details: Patient presents for follow up missed 2 appts currently prescribed suboxone 16mg daily has been trying to complete tasks at least once per day reached out to [facility]--still working towards [facility] Medical History Depression Drug abuse Surgical History H/O tubal ligation Previous section Social History Substance Use Type: Marijuana Review of Systems Const Reports as per HPI and Reports no additional complaints Physical Exam Const General: cooperative, healthy appearing, no acute distress and well groomed Assessment & Plan Assessment & Plan (1) Opioid use disorder, severe, in sustained remission: Code(s): F11.21 - Opioid dependence, in remission Category: Medical Plan: * continue suboxone at current dose * follow up 3 weeks Medications: Refilled buprenorphine-naloxone 8-2 mg (Suboxone) 2 film sublingual DAILY 60 ea 1RF
== END 2024-02-01 09:39 | disposition home or self-care (01) ==
PROVIDERS: Visit Provider Nurse Practitioner Psychiatric/Mental Health
DX: F11.21 Opioid dependence, in remission (principal)
CPT/HCPCS: 99213

== ENCOUNTER → 2024-02-01 09:04 | Outpatient (BNVA) | payer OTHER, SELFPAY | PROVIDERS: Visit Provider Nurse Practitioner Psychiatric/Mental Health | DX: F11.21 Opioid dependence, in remission (principal) | CPT/HCPCS: 99212 ==

== ENCOUNTER 2024-03-02 16:11 | Emergency (ER) | payer OTHER, SELFPAY ==
[2024-03-02 16:15] VITALS: BP 128/74; PULSE 80; RESP 18; TEMP 36.6; O2SAT 100; BMI 18.6
--- NOTE | 2024-03-02 16:15 | ED_ITS ---
HPI - General Adult General Chief complaint: General Medical Stated complaint: medication refill Time Seen by Provider: 03/02/24 17:09 Source: patient, RN notes reviewed and old records reviewed Mode of arrival: ambulatory History of Present Illness ED Provider: Preeti Galindo PA-C HPI narrative: 58yo F w/PMHx opiate use d/o presenting to the ED c/o missed dose of Suboxone due to in the family. States took last dose taken on (2 days ago). Follows with Negrita Mckeon. Admits to chills, rhinorrhea, sneezing. Denies substance use in years Related Data Previous Rx's ?Medication ?Instructions ?Recorded cefuroxime axetil 500 mg tablet 500 mg PO BID #14 tabs 12/07/23 venlafaxine 150 mg 150 mg PO DAILY #90 caps 12/19/23 capsule,extended release 24 hr buprenorphine 8 mg-naloxone 2 mg 2 film sublingual DAILY #60 ea 02/01/24 sublingual film (Suboxone) buprenorphine 8 mg-naloxone 2 mg 2 film buccal DAILY 2 days #4 ea 03/02/24 sublingual film (Suboxone) Allergies Allergy/AdvReac Type Severity Reaction Status Date / Time No Known Allergies Allergy Verified 03/02/24 16:17 Review of Systems Review of Systems: Yes all other systems are reviewed and are negative Constitutional: Constitutional: Reports as per [facility] Past Medical History Attestation statement: The following information was validated with the patient. Source: old records reviewed Medical History Drug abuse Depression Surgical History H/O tubal ligation Previous section Social History Social History Substance Use Type: Marijuana Advance Directives: No Advance Directives Information Provided: No Do you have a plan to hurt others: No Plan Physical Exam ED Vital Signs: Vital Signs - 24 hr 03/02/24 16:15 Temperature 97.9 F Pulse Rate 80 Respiratory Rate 18 Blood Pressure 128/74 Pulse Oximetry 100 Oxygen Delivery Method Room Air BMI result Body Mass Index 18.6 Const General: cooperative, healthy appearing and no acute distress Orientation/consciousness: patient oriented x3 Limitations: no limitations HENMT Head: Yes normal to inspection and Yes atraumatic Ears: hearing grossly normal bilaterally General nose exam: Normal external nose present Face and sinus: Yes normal facial exam Eyes General: appearance normal, both eyes and all related structures EOM: EOMs intact bilaterally Neck Neck: Yes normal visual inspection and Yes no meningeal signs Resp Effort & Inspection: normal respiratory effort and no respiratory distress Cardio Rate: regular rate Skin Rashes: no rashes Wounds: no wounds Neuro General: patient oriented x3, tone normal, no meningeal signs and CN's II-XI intact bilaterally Cranial nerves: Yes CN's II-XII intact bilaterally Gait exam (Neuro): Normal gait present Extrem General: Yes normal to inspection Course Course Course Narrative: This is a Rapid Medical Exam performed in triage by Preeti Galindo PA-C. Full HPI, ROS and PE to be performed by primary ED provider. 58yo F w/PMHx opiate use d/o presenting to the ED c/o missed dose of Suboxone due to in the family. Last dose taken on . Follows with Negrita Mckeon. Admits to chills, rhinorrhea, sneezing. Denies substance use. PE: Nontoxic appearing. NAD, acting appropriate Plan: [place], consult addiction med Medications Administered Discontinued Medications Generic Name Dose Route Start Last Admin Trade Name Charlette PRN Reason Stop Dose Admin Buprenorphine/Naloxone 2 film 03/02/24 17:09 03/02/24 17:14 Buprenorphine/Naloxone 8/2 Mg Film SUBLINGUAL 03/02/24 17:10 2 film ONCE ONE Administration Medical Decision Making Medical Decision Making MDM Narrative: 58yo F w/PMHx opiate use d/o presenting to the ED c/o missed dose of Suboxone due to in the family. On exam vital signs stable, NAD, nontoxic appearing, acting appropriate. Will obtain tox screen and consult addiction medicine, Negrita Mckeon Please refer to course for remaining clinical decision making, interpretation of labs/imaging results, and discussions with consultants and/or family members. > case discussed with Negrita Mckeon who recommended dosing patient in the ED today as well as sending prescription to pharmacy until Monday. Patient will follow up on Monday with her. Patient is aware and agreeable Results discussed with patient including worrisome signs and symptoms and strict return precautions, and when to return to the emergency department. They verbalized understanding and feel safe for discharge at this time. Differential Diagnosis Differential Diagnoses: The differential diagnosis associated with the presentation includes As above Consult Healthcare Provider Management of the patient was discussed with: Behavioral Health Provider Lab Data MDM Lab Attestation statement: I reviewed the patient's lab results. Labs: Lab Results 03/02/24 Range/Units 16:24 Urine Opiates Screen Not Detected (Not Detect) Ur Buprenorphine Scrn Positive H (Not Detect) ng/mL Ur Oxycodone Screen Not Detected (Not Detect) ng/mL Urine Methadone Screen Not Detected (Not Detect) ng/mL Urine Fentanyl Screen Not Detected (Not Detect) Ur Barbiturates Screen Not Detected (Not Detect) Ur Phencyclidine Scrn Not Detected (Not Detect) Ur Amphetamines Screen Not Detected (Not Detect) U Benzodiazepines Scrn Not Detected (Not Detect) Urine Cocaine Screen Not Detected (Not Detect) U Marijuana (THC) Screen POSITIVE H (Not Detect) External Record Review External record reviewed: Inpatient record, Office record, Outpatient record, Prior outpatient labs, Prior outpatient radiology, Primary care record and Outside ED record Tests considered The following testing was considered but not selected: As above Social Determinants Patient?s care significantly limited by Social Determinants of Health including: Low income, Alcoholism and drug addiction in family, Problems related to primary support group, Unemployment and Other Social Determinant of Health Discharge Plan Discharge Clinical Impression: Encounter for monitoring Suboxone maintenance therapy, Opioid use disorder, severe, in sustained remission Patient Disposition: Home, Self-Care Instructions: Opioid Use Disorder (ED) Additional Instructions: Please follow-up on Monday with Negrita Mckeon Prescription for Suboxone for Monday and Monday was sent to the pharmacy. If symptoms persist or worsen return to the ED Prescriptions: New buprenorphine-naloxone [Suboxone] 8-2 mg film 2 film buccal DAILY 2 Days Qty: 4 0RF Rx Instructions: place 1 film on inside of (each) cheek No Action cefuroxime axetil 500 mg tablet 500 mg PO BID Qty: 14 0RF venlafaxine 150 mg capsule,extended release 24hr 150 mg PO DAILY Qty: 90 0RF buprenorphine-naloxone [Suboxone] 8-2 mg film 2 film sublingual DAILY Qty: 60 1RF Referrals: Negrita Mckeon CNP [Nurse Practitioner] - 2 days Discharge Date/Time: 03/02/24 17:23 Print Language: Palestinian
[2024-03-02 16:52] LABS: Amphetamine Screen Urine Not Detected (Not Detect); Barbiturates, Urine Not Detected (Not Detect); Benzodiazepines Screen Urine Not Detected (Not Detect); Buprenorphine Scr Positive (Not Detect); Cannabinoid Screen Urine POSITIVE (Not Detect); Cocaine Screen Urine Not Detected (Not Detect); Fentanyl, urine Not Detected (Not Detect); Methadone Screen, Urine Not Detected (Not Detect); Opiate Screen Urine Not Detected (Not Detect); Oxycodone Screen Urine Not Detected (Not Detect); Phencyclidine Screen Urine Not Detected (Not Detect)
[2024-03-02] MEDS: Buprenorphine/Naloxone 8/2 mg FILM 2 FILM SUBLINGUAL (17:14)
== END 2024-03-02 17:23 | disposition home or self-care (01) ==
PROVIDERS: Physician Assistant; Emergency Provider Emergency Medicine
DX: F11.21 Opioid dependence, in remission (principal)
CPT/HCPCS: 80307; 99282

== ENCOUNTER 2024-03-04 13:35 | Outpatient (AMB) | payer OTHER, SELFPAY ==
--- NOTE | 2024-03-04 13:41 | A.OFFVISCC_ITS ---
Intake Visit Reasons: MAT office Allergies No Known Allergies Allergy (Verified 03/02/24 16:17) HPI [facility] MAT office: Details: Patient presents for follow up had missed another appt presented to the ED over the weekend due to running out of medication denies any substance use reporting a lot changes in her home --son's GF moved in hours at work have been cut down still experiencing depressive sx --tearful, unmotivated has not reached out to providers at [facility] discussed PHP--patient does not feel she can commit to this at this time [facility] Medical History Drug abuse Depression Surgical History H/O tubal ligation Previous section Social History Substance Use Type: Marijuana Review of Systems Const Reports as per HPI, Reports no additional complaints and Reports difficulty sleeping Physical Exam Const General: cooperative, anxious and well groomed Nutritional Appearance: thin Orientation/consciousness: patient oriented x3 Limitations: no limitations Neuro General: patient oriented x3 Psych Appearance: well kempt Speech and movement: Normal speech and movement present Affect: Sad affect present and Anxious affect present Attitude: cooperative Thought process: Normal thought process present Thought content: Depressive thoughts present Insight: Good insight present (Psych) Judgement: Fair judgement present (Psych) Assessment & Plan Assessment & Plan (1) Opioid use disorder, severe, in sustained remission: Code(s): F11.21 - Opioid dependence, in remission Category: Medical Plan: * continue suboxone at current dose * follow up 4 weeks--walk in due to #missed appts (2) Major depress dis, severe: Code(s): F32.2 - Major depressive disorder, single episode, severe without psychotic features Category: Medical Plan: * encouraged to go to [facility] * discussed [facility] Medications: Discontinued buprenorphine-naloxone 8-2 mg (Suboxone) place 1 film on inside of (each) cheek Discontinued Reason: Duplicate 2 film buccal DAILY 2 days 4 ea 0RF
== END 2024-03-04 14:55 | disposition home or self-care (01) ==
PROVIDERS: Visit Provider Nurse Practitioner Psychiatric/Mental Health
DX: F11.21 Opioid dependence, in remission (principal); F32.2 Major depressive disorder, single episode, severe without psychotic features
CPT/HCPCS: 99214

== ENCOUNTER → 2024-03-04 13:35 | Outpatient (BNVA) | payer OTHER, SELFPAY | PROVIDERS: Visit Provider Nurse Practitioner Psychiatric/Mental Health | DX: F11.21 Opioid dependence, in remission (principal); F32.2 Major depressive disorder, single episode, severe without psychotic features | CPT/HCPCS: 99212 ==

== ENCOUNTER 2024-04-01 14:16 | Outpatient (AMB) | payer OTHER, SELFPAY ==
--- NOTE | 2024-04-01 14:19 | A.OFFVISCC_ITS ---
Intake Visit Reasons: MAT office Allergies No Known Allergies Allergy (Verified 03/02/24 16:17) HPI HPI MAT office: Details: Patient presents for follow up Started therapy --has seen her twice now, scheduled weekly will be asking for med provider referral Feeling more hopeful -motivated No issues related to suboxone Review of Systems Const Reports as per HPI and Reports no additional complaints Physical Exam Const General: cooperative, healthy appearing and well groomed Assessment & Plan Assessment & Plan (1) Opioid use disorder, severe, in sustained remission: Code(s): F11.21 - Opioid dependence, in remission Category: Medical Plan: * continue suboxone at current dose * follow up 4 weeks (2) Major depress dis, severe: Code(s): F32.2 - Major depressive disorder, single episode, severe without psychotic features Category: Medical Plan: * refilled Effexor previously * continue with [facility] provider in community Medications: Refilled buprenorphine-naloxone 8-2 mg (Suboxone) 2 film sublingual DAILY 60 ea 1RF PFSH Medical History Drug abuse Depression Surgical History H/O tubal ligation Previous section Social History Substance Use Type: Marijuana
== END 2024-04-01 14:33 | disposition home or self-care (01) ==
PROVIDERS: Visit Provider Nurse Practitioner Psychiatric/Mental Health
DX: F11.21 Opioid dependence, in remission (principal); F32.2 Major depressive disorder, single episode, severe without psychotic features
CPT/HCPCS: 99214

== ENCOUNTER → 2024-04-01 14:16 | Outpatient (BNVA) | payer OTHER, SELFPAY | PROVIDERS: Visit Provider Nurse Practitioner Psychiatric/Mental Health | DX: F11.21 Opioid dependence, in remission (principal); F32.2 Major depressive disorder, single episode, severe without psychotic features | CPT/HCPCS: 99212 ==

== ENCOUNTER 2024-05-31 10:43 | Outpatient (AMB) | payer OTHER, SELFPAY ==
--- NOTE | 2024-05-31 11:09 | A.OFFVISCC_ITS ---
Intake Visit Reasons: MAT Office Allergies No Known Allergies Allergy (Verified 03/02/24 16:17) HPI HPI MAT Office: Details: Patient presents for OUD treatment follow up Currently prescribed Suboxone 16mg daily Doing well with current dose Still seeing therapist weekly Feels that is has been very helpful Referral for psych provider placed Things are going well at home overall Mother --dementia, age 93 Review of Systems Const Reports as per HPI and Reports no additional complaints Physical Exam Const General: cooperative, healthy appearing and well groomed Psych Appearance: well kempt Mental Status: mental status grossly normal Speech and movement: Normal speech and movement present Affect: normal affect Attitude: cooperative Thought process: Normal thought process present Thought content: Normal thought content present Insight: Good insight present (Psych) Judgement: Good judgement present (Psych) PFS Medical History Drug abuse Depression Surgical History H/O tubal ligation Previous section Social History Substance Use Type: Marijuana Assessment & Plan Assessment & Plan (1) Opioid use disorder, severe, in sustained remission: Code(s): F11.21 - Opioid dependence, in remission Category: Medical Plan: * continue suboxone at current dose * follow up 2 months (2) Major depress dis, severe: Code(s): F32.2 - Major depressive disorder, single episode, severe without psychotic features Category: Medical Plan: * continue effexor Medications: Refilled buprenorphine-naloxone 8-2 mg (Suboxone) 2 film sublingual DAILY 60 ea 1RF
== END 2024-05-31 13:02 | disposition home or self-care (01) ==
PROVIDERS: Visit Provider Nurse Practitioner Psychiatric/Mental Health
DX: F11.21 Opioid dependence, in remission (principal); F32.2 Major depressive disorder, single episode, severe without psychotic features
CPT/HCPCS: 99214

== ENCOUNTER → 2024-05-31 10:43 | Outpatient (BNVA) | payer OTHER, SELFPAY | PROVIDERS: Visit Provider Nurse Practitioner Psychiatric/Mental Health | DX: F11.21 Opioid dependence, in remission (principal); F32.2 Major depressive disorder, single episode, severe without psychotic features | CPT/HCPCS: 99212 ==

== ENCOUNTER 2024-07-26 10:35 | Outpatient (AMB) | payer OTHER, SELFPAY ==
--- NOTE | 2024-07-26 10:45 | MHC.AM.SUB ---
Intake Visit Reasons: MAT Office Allergies No Known Allergies Allergy (Verified 03/02/24 16:17) HPI HPI MAT Office: Details: Patient presents for follow up Currently prescribed Suboxone 8mg daily Tolerating current dose Denies any side effects Sleeping well, appetite good Has been caring for 93 year old mother, along with her siblings, and seeing her every day Bright affect I am in a good place.. Still engaged in therapy Review of Systems Const Reports as per HPI Physical Exam Const General: cooperative, healthy appearing and well groomed Psych Appearance: well kempt Mental Status: mental status grossly normal Speech and movement: Normal speech and movement present Affect: normal affect Attitude: cooperative Thought process: Normal thought process present Thought content: Normal thought content present Insight: Good insight present (Psych) Judgement: Good judgement present (Psych) [facility] Medical History Drug abuse Depression Surgical History H/O tubal ligation Previous section Social History Substance Use Type: Marijuana Assessment & Plan Assessment & Plan (1) Opioid use disorder, severe, in sustained remission: Code(s): F11.21 - Opioid dependence, in remission Category: Medical Plan: continue suboxone at current dose follow up 2 months (2) Major depress dis, severe: Code(s): F32.2 - Major depressive disorder, single episode, severe without psychotic features Category: Medical Plan: continue effexor
== END 2024-07-26 11:10 | disposition home or self-care (01) ==
LOC: HO.HCC 10:36
PROVIDERS: Visit Provider Nurse Practitioner Psychiatric/Mental Health
DX: F11.21 Opioid dependence, in remission (principal); F32.2 Major depressive disorder, single episode, severe without psychotic features
CPT/HCPCS: 99213

== ENCOUNTER → 2024-07-26 10:35 | Outpatient (BNVA) | payer OTHER, SELFPAY | PROVIDERS: Visit Provider Nurse Practitioner Psychiatric/Mental Health | DX: F11.21 Opioid dependence, in remission (principal); F32.2 Major depressive disorder, single episode, severe without psychotic features; Z51.81 Encounter for therapeutic drug level monitoring | CPT/HCPCS: 99212 ==

== ENCOUNTER 2024-09-20 13:06 | Outpatient (AMB) | payer OTHER, SELFPAY ==
--- NOTE | 2024-09-20 13:05 | MHC.OFFVIS ---
Vital Signs 09/20/24 13:08 Height 5 ft 5 in Pulse 87 Pulse Source Pulse Oximeter Pulse Oximetry (%) 95 Oxygen Delivery Method Room Air Intake Visit Reasons: MAT Allergies No Known Allergies Allergy (Verified 09/20/24 13:09) HPI HPI MAT: Details: She is doing well, no substance use PFSH Medical History Drug abuse Depression Surgical History H/O tubal ligation Previous section Social History Substance Use Type: Marijuana Review of Systems Const All systems reviewed & are unremarkable except as noted in HPI and below Physical Exam Vital Signs: Last Vital Signs Pulse 87 09/20/24 13:08 Pulse Ox 95 09/20/24 13:08 Oxygen Delivery Method Room Air 09/20/24 13:08 Const General: cooperative Results AMB 14 Panel Urine Drug Screen Urine Marijuana (THC) Positive Last Edit by Francesco Russo CMA on 09/20/24 13:11 Urine Cocaine Negative Last Edit by Francesco Russo CMA on 09/20/24 13:11 Urine Morphine Negative Last Edit by Francesco Russo CMA on 09/20/24 13:11 Urine Methamphetamine Negative Last Edit by Francesco Russo CMA on 09/20/24 13:11 Urine Amphetamine Negative Last Edit by Francesco Russo CMA on 09/20/24 13:11 Urine Benzodiazepine Negative Last Edit by Francesco Russo CMA on 09/20/24 13:11 Urine Barbiturates Negative Last Edit by Francesco Russo CMA on 09/20/24 13:11 Urine Methadone Negative Last Edit by Francesco Russo CMA on 09/20/24 13:11 Urine Buprenorphine Positive Last Edit by Francesco Russo CMA on 09/20/24 13:11 Urine Tricyclic Antidepressant Negative Last Edit by Francesco Russo CMA on 09/20/24 13:11 Urine MDMA Negative Last Edit by Francesco Russo CMA on 09/20/24 13:11 Urine Oxycodone Negative Last Edit by Francesco Russo CMA on 09/20/24 13:11 Urine Phencyclidine Negative Last Edit by Francesco Russo CMA on 09/20/24 13:11 Urine Propoxyphene Negative Last Edit by Francesco Russo CMA on 09/20/24 13:11 Results Reviewed Results Reviewed: Laboratory Last Values POC Urine Buprenorphine Positive 09/20/24 13:08 POC Urine Morphine Negative 09/20/24 13:08 POC Urine Oxycodone Negative 09/20/24 13:08 POC Urine Methadone Negative 09/20/24 13:08 POC Urine Propoxyphene Negative 09/20/24 13:08 POC Urine Barbiturates Negative 09/20/24 13:08 POC U Tricyclic Antidpr Negative 09/20/24 13:08 POC Urine PCP Negative 09/20/24 13:08 POC Ur Amphetamines Negative 09/20/24 13:08 POC Ur Methamphetamine Negative 09/20/24 13:08 POC Urine MDMA Negative 09/20/24 13:08 POC Ur Benzodiazepine Negative 09/20/24 13:08 POC Urine Cocaine Negative 09/20/24 13:08 POC Ur Marijuana (THC) Positive 09/20/24 13:08 Assessment & Plan Assessment & Plan (1) Opioid use disorder, severe, in sustained remission: Code(s): F11.21 - Opioid dependence, in remission Category: Medical Plan: Continue Suboxone See as indicated Orders: Orders AMB 14 Panel Urine Drug Screen 09/20/24 Z51.81 - Encounter for therapeutic drug level monitoring Medications: New buprenorphine-naloxone 8-2 mg (Suboxone) place 1 film on inside of (each) cheek 2 film sublingual DAILY 60 ea 1RF 30 days Coding Level of Care Code Est Pt Level 3 (23147) Diagnoses Opioid use disorder, severe, in sustained remission F11.21
[2024-09-20 13:08] VITALS: PULSE 87; O2SAT 95
--- NOTE | 2024-09-25 13:27 | AM.OFFVISNUR ---
Vital Signs 09/20/24 13:08 Height 5 ft 5 in Pulse 87 Pulse Source Pulse Oximeter Pulse Oximetry (%) 95 Oxygen Delivery Method Room Air Intake Visit Reasons: MAT Allergies No Known Allergies Allergy (Verified 09/25/24 13:19) Nursing Note Vanita presented for an appointment on 09/20/24 for her scheduled MAT visit. A prescription was sent to [facility]/pharmacy #[id number] Katz on 09/20 for Buprenorphine/naloxone 8/2 mg 2 films daily for 30 days with 1 (one) refill. Vanita went to [facility] to get her prescription on Sunday 09/24 and was told that they ([facility]) never got the prescription. Vanita called the office and spoke to the Wilfredo who informed the provider who sent another prescription to [facility]. Vanita tried to pick that one up on 09/25 and was told once AGAIN that they did not have the prescription. Vanita called the office again understandably upset and concerned about withdrawal symptoms. MAREK Duke called [facility] directly and spoke to the pharmacy, the phone was on speaker, TW witnessed the call. [facility] reported that they had accidentally deleted the prescription and needed a third one sent. Provider issued a third prescription to [facility] #[id number] on 09/25/24. Results AMB 14 Panel Urine Drug Screen Urine Marijuana (THC) Positive Last Edit by Francesco Russo CMA on 09/20/24 13:11 Urine Cocaine Negative Last Edit by Francesco Russo CMA on 09/20/24 13:11 Urine Morphine Negative Last Edit by Francesco Russo CMA on 09/20/24 13:11 Urine Methamphetamine Negative Last Edit by Francesco Russo CMA on 09/20/24 13:11 Urine Amphetamine Negative Last Edit by Francesco Russo CMA on 09/20/24 13:11 Urine Benzodiazepine Negative Last Edit by Francesco Russo CMA on 09/20/24 13:11 Urine Barbiturates Negative Last Edit by Francesco Russo CMA on 09/20/24 13:11 Urine Methadone Negative Last Edit by Francesco Russo CMA on 09/20/24 13:11 Urine Buprenorphine Positive Last Edit by Francesco Russo CMA on 09/20/24 13:11 Urine Tricyclic Antidepressant Negative Last Edit by Francesco Russo CMA on 09/20/24 13:11 Urine MDMA Negative Last Edit by Francesco Russo CMA on 09/20/24 13:11 Urine Oxycodone Negative Last Edit by Francesco Russo CMA on 09/20/24 13:11 Urine Phencyclidine Negative Last Edit by Francesco Russo CMA on 09/20/24 13:11 Urine Propoxyphene Negative Last Edit by Francesco Russo CMA on 09/20/24 13:11 Assessment & Plan Assessment & Plan (1) Opioid use disorder, severe, in sustained remission: Code(s): F11.21 - Opioid dependence, in remission Category: Medical Orders: Orders AMB 14 Panel Urine Drug Screen 09/20/24 Z51.81 - Encounter for therapeutic drug level monitoring Medications: New buprenorphine-naloxone 8-2 mg (Suboxone) place 1 film on inside of (each) cheek 2 film sublingual DAILY 60 ea 1RF 30 days Coding Diagnoses Opioid use disorder, severe, in sustained remission F11.21
== END 2024-09-20 13:39 | disposition home or self-care (01) ==
LOC: HO.HID 13:06
PROVIDERS: Visit Provider Internal Medicine
DX: F11.21 Opioid dependence, in remission (principal)
CPT/HCPCS: 99213

== ENCOUNTER → 2024-09-20 13:06 | Outpatient (BNVA) | payer OTHER, SELFPAY | PROVIDERS: Visit Provider Internal Medicine | DX: F11.21 Opioid dependence, in remission (principal); Z51.81 Encounter for therapeutic drug level monitoring | CPT/HCPCS: 99212 ==

== ENCOUNTER 2024-09-25 13:13 | Emergency (ER) | payer OTHER, SELFPAY ==
[2024-09-25 13:18] VITALS: BP 147/78; PULSE 86; RESP 16; TEMP 37.1; O2SAT 98
--- NOTE | 2024-09-25 13:19 | ED.GENADULT ---
HPI - General Adult General Chief complaint: General Medical Stated complaint: Suboxon Treatment Time Seen by Provider: 09/25/24 14:01 Source: patient, RN notes reviewed and old records reviewed Mode of arrival: ambulatory Limitations: no limitations History of Present Illness ED Provider: Danitza HPI narrative: Patient is a 59-year-old female with history of OUD disorder in sustained remission on suboxone presenting to ED stating that there was an issue at [facility], that somehow her suboxone prescription was deleted. She has been speaking with Wilfredo at Dr. Katz's office/[facility] but the issue has not yet been able to be resolved. complaint: needs suboxone Related Data Previous Rx's ?Medication ?Instructions ?Recorded venlafaxine 150 mg 150 mg PO DAILY #90 caps 06/24/24 capsule,extended release 24 hr buprenorphine 8 mg-naloxone 2 mg 2 film sublingual DAILY #60 ea 07/26/24 sublingual film (Suboxone) buprenorphine 8 mg-naloxone 2 mg 2 film sublingual DAILY 30 days 09/20/24 sublingual film (Suboxone) #60 ea buprenorphine 8 mg-naloxone 2 mg 2 film sublingual DAILY 30 days 09/25/24 sublingual film (Suboxone) #60 ea Allergies Allergy/AdvReac Type Severity Reaction Status Date / Time No Known Allergies Allergy Verified 09/25/24 13:19 Review of Systems Review of Systems: as per HPI Yes all other systems are reviewed and are negative Constitutional: Constitutional: Reports as per HPI [facility] Past Medical History Medical History Drug abuse Depression Surgical History H/O tubal ligation Previous section Social History Social History Substance Use Type: Marijuana Physical Exam ED Vital Signs: Vital Signs - 24 hr 09/25/24 13:18 Temperature 98.7 F Pulse Rate 86 Respiratory Rate 16 Blood Pressure 147/78 H Pulse Oximetry 98 Oxygen Delivery Method Room Air BMI result Body Mass Index 20.0 Vital signs have been reviewed and appear to be correct. Blood pressure normal. Heart rate normal. Respiratory rate normal. Temperature normal. Oxygen saturation normal. Const General: cooperative, healthy appearing and no acute distress Orientation/consciousness: oriented to person, oriented to place, oriented to time and patient oriented x3 Limitations: no limitations HENMT Head: Yes normocephalic and Yes atraumatic Ears: external ears normal General nose exam: Normal external nose present Face and sinus: Yes face symmetric Mouth: oropharynx normal and moist mucous membranes Throat: Yes uvula midline Eyes Pupils: Equal, round and reactive pupils present Neck Neck: Yes normal visual inspection and Yes supple Resp Effort & Inspection: normal respiratory effort and able to speak in complete sentences Auscultation: clear to auscultation bilaterally Cardio Rate: regular rate Rhythm: regular rhythm Heart sounds: S1 normal heart sound present and S2 normal heart sound present GI Palpation (GI): Soft to palpation and nontender Auscultation: normoactive bowel sounds General: Yes no CVA tenderness Back/Spine/Pelvis Back: no CVA tenderness Skin General skin exam: elasticity normal and turgor normal Neuro General: oriented to person, oriented to place, oriented to time, patient oriented x3, moves all extremities, no focal motor deficits and CN's II-XI intact bilaterally Cranial nerves: Yes Equal, round and reactive pupils present Cognition (Neuro): normal cognition Extrem General: Yes full ROM, Yes no pedal edema and Yes no calf tenderness Psych Mental Status: mental status grossly normal Affect: normal affect Thought process: Normal thought process present Course Course Course Narrative: This is a rapid medical exam performed by Kary Bosch NP: Additional HPI, ROS, PE not included below will be deferred to primary provider. Patient is a 59-year-old female with history of OUD disorder in sustained remission on suboxone presenting to ED stating that there was an issue at [facility], that somehow her suboxone prescription was deleted. She has been speaking with Wilfredo at Dr. Katz's office/[facility] but the issue has not yet been able to be resolved. Medical Decision Making Medical Decision Making MDM Narrative: Patient is a 59-year-old female with history of OUD disorder in sustained remission on suboxone presenting to ED stating that there was an issue at [facility], that somehow her suboxone prescription was deleted. She has been speaking with Wilfredo at Dr. Katz's office/[facility] but the issue has not yet been able to be resolved. On exam patient is awake, A+Ox3, VS WNL, afebrile, normal neurological exam without focal deficits, physical exam findings as above. Given reported symptoms and physical exam findings, initial differential includes but is not limited to suboxone dependence. Spoke with Wilfredo from Dr. Katz's office, he states that it took some time but the issue has been resolved and patient's prescription is ready for her to supervisor opening and picking. Patient advised that her prescription is ready. Return precautions discussed. Patient verbalized understanding of and with plan. Differential Diagnosis Differential Diagnoses: The differential diagnosis associated with the presentation includes as per [facility] Admission/Observation Consideration of admission/observation: Escalation of care including admission/observation considered Patient would have been admitted to the hospital had their work up had any findings where hospital admission was appropriate and their clinical presentation warranted hospital admission. External Record Review External record reviewed: Inpatient record, Office record and Outpatient record Discharge Plan Discharge Clinical Impression: Opioid use disorder, severe, in sustained remission Patient Disposition: Home, Self-Care Additional Instructions: You presented to the emergency department today for your suboxone prescription. We spoke with Dr. Katz's office and the problem with your prescription has been resolved and your medication can be picked up from [facility] pharmacy. Return with any new or concerning symptoms. Opiate use disorder You were seen in our Emergency Department today for treatment of opiate use disorder. You may have been dosed with medication for opiate use disorder (MOUD) in the form of suboxone or methadone. You may experience feeling some withdrawal symptoms and this is normal. The? dose in the Emergency Department is a starting dose and meant to be titrated up once you follow up with a clinic. Please do not feel discouraged, it is a process. The nurse has reviewed with you where to follow up and what information to bring with you, to continue treatment. You also may have been given naloxone (narcan) to take home with you. This medication is used to potentially treat opiate overdose. If you decide you want to stop or cut down on how much you?re using, you can call or walk into our outpatient Addiction Treatment office: [facility] (M-F 9am-5p) [address], [address] [phone] You may have been provided with safer injection?items, please take time to take care of YOU and your health. Use new supplies whenever possible to lessen the chances of infections and other illnesses.? ?If you need more supplies, please go [facility],? [address] [place], [place] you can call or text to coordinate delivery of safer supplies. You were also provided a list of several treatment providers in the area.? If you experience any worsening symptoms you cannot control please return to the ED or call 911. Please follow up at your next appointment. Things to look out for are fevers, chest pain, shortness of breath, severe pain, dizziness, fainting or any other concerns. Prescriptions: No Action venlafaxine 150 mg capsule,extended release 24hr 150 mg PO DAILY Qty: 90 0RF buprenorphine-naloxone [Suboxone] 8-2 mg film 2 film sublingual DAILY 30 Days Qty: 60 1RF Rx Instructions: place 1 film on inside of (each) cheek buprenorphine-naloxone [Suboxone] 8-2 mg film 2 film sublingual DAILY Qty: 60 1RF buprenorphine-naloxone [Suboxone] 8-2 mg film 2 film sublingual DAILY 30 Days Qty: 60 1RF Rx Instructions: place 1 film on inside of (each) cheek Print Language: Lithuanian
[2024-09-25 14:54] VITALS: BP 147/78; PULSE 86; RESP 16; TEMP 37.1; O2SAT 98
== END 2024-09-25 14:55 | disposition home or self-care (01) ==
PROVIDERS: Emergency Provider Emergency Medicine; PCP Nurse Practitioner Family
DX: F11.20 Opioid dependence, uncomplicated (principal); Z79.899 Other long term (current) drug therapy
CPT/HCPCS: 99282

== ENCOUNTER 2024-11-20 13:13 | Outpatient (AMB) | payer OTHER, SELFPAY ==
--- NOTE | 2024-11-20 13:16 | MHC.OFFVIS ---
Vital Signs 11/20/24 13:26 Height 5 ft 5 in Weight 120 lb BMI 20.0 Pulse 95 Pulse Source Pulse Oximeter Pulse Oximetry (%) 96 Oxygen Delivery Method Room Air Intake Visit Reasons: MAT Allergies No Known Allergies Allergy (Verified 11/20/24 13:26) HPI HPI MAT: Details: She has stress since her son is dating woman with schizophrenia. She is not using and has no SI or HI. She feels current Suboxone dose working well for her. PFSH Medical History Drug abuse Depression Surgical History H/O tubal ligation Previous section Social History Substance Use Type: Marijuana Review of Systems Const All systems reviewed & are unremarkable except as noted in HPI and below Physical Exam Vital Signs: Last Vital Signs Pulse 95 11/20/24 13:26 Pulse Ox 96 11/20/24 13:26 Oxygen Delivery Method Room Air 11/20/24 13:26 BMI result Body Mass Index 20.0 Const General: cooperative Assessment & Plan Assessment & Plan (1) Opioid use disorder, severe, in sustained remission: Comment: She is stable despite stressors. Code(s): F11.21 - Opioid dependence, in remission Category: Medical Plan: See in two months. Find PCP. Continue counseling. (2) Major depress dis, severe: Code(s): F32.2 - Major depressive disorder, single episode, severe without psychotic features Category: Medical Plan na Medications: New buprenorphine-naloxone 8-2 mg (Suboxone) 1 film sublingual BID 60 ea 1RF 30 days Coding Level of Care Code Est Pt Level 3 (93505) Diagnoses Opioid use disorder, severe, in sustained remission F11.21 Major depress dis, severe F32.2
[2024-11-20 13:26] VITALS: PULSE 95; O2SAT 96
== END 2024-11-20 14:31 | disposition home or self-care (01) ==
LOC: HO.HCC 13:14
PROVIDERS: Visit Provider Internal Medicine
DX: F11.21 Opioid dependence, in remission (principal); F32.2 Major depressive disorder, single episode, severe without psychotic features
CPT/HCPCS: 99213

== ENCOUNTER → 2024-11-20 13:13 | Outpatient (BNVA) | payer OTHER, SELFPAY | PROVIDERS: Visit Provider Internal Medicine | DX: F11.21 Opioid dependence, in remission (principal); F32.2 Major depressive disorder, single episode, severe without psychotic features | CPT/HCPCS: 99212 ==

== ENCOUNTER 2025-01-17 14:51 | Outpatient (AMB) | payer OTHER, SELFPAY ==
--- OUTSIDE RECORDS SUMMARY | 2025-01-17 14:55 | XMS_ITS ---
Author Name [facility] Organization Unknown Care Team Organization Name Specialty Phone Email Start Date End Da te [facility] 03/22/20222023
--- NOTE | 2025-01-17 15:01 | MHC.OFFVIS ---
Vital Signs 01/17/25 15:03 Height 5 ft 5 in Weight 125 lb BMI 20.8 BP 106/62 Pulse 76 Pulse Oximetry (%) 97 Intake Visit Reasons: mat visit Allergies No Known Allergies Allergy (Verified 01/17/25 15:04) HPI HPI mat visit: Details: She feels well and has no concerns. Medication is working well. PFSH Medical History Drug abuse Depression Surgical History H/O tubal ligation Previous section Social History Substance Use Type: Marijuana Review of Systems Const All systems reviewed & are unremarkable except as noted in HPI and below Physical Exam Vital Signs: Last Vital Signs Pulse 76 01/17/25 15:03 BP 106/62 01/17/25 15:03 Pulse Ox 97 01/17/25 15:03 BMI result Body Mass Index 20.8 Const General: cooperative Assessment & Plan Assessment & Plan (1) Opioid use disorder, severe, in sustained remission: Comment: She is stable despite stressors. Code(s): F11.21 - Opioid dependence, in remission Category: Medical Plan: Continue current plan. Plan See as scheduled. Script written for. Medications: New buprenorphine-naloxone 8-2 mg (Suboxone) 1 film sublingual BID 60 ea 2RF 30 days Coding Level of Care Code Est Pt Level 3 (68238) Diagnoses Opioid use disorder, severe, in sustained remission F11.21
[2025-01-17 15:03] VITALS: BP 106/62; PULSE 76; O2SAT 97; BMI 20.8
== END 2025-01-17 15:33 | disposition home or self-care (01) ==
PROVIDERS: Visit Provider Internal Medicine
DX: F11.21 Opioid dependence, in remission (principal)
CPT/HCPCS: 99213

== ENCOUNTER → 2025-01-17 14:51 | Outpatient (BNVA) | payer OTHER, SELFPAY | PROVIDERS: Visit Provider Internal Medicine | DX: F11.21 Opioid dependence, in remission (principal); Z79.899 Other long term (current) drug therapy | CPT/HCPCS: 99212 ==

== ENCOUNTER 2025-03-10 19:14 | Emergency (ER) | payer OTHER, SELFPAY ==
[2025-03-10 20:04] VITALS: BP 101/62; PULSE 70; RESP 16; TEMP 36.6; O2SAT 96; BMI 20.2
--- NOTE | 2025-03-10 21:35 | PC.NURSE ---
patient stated she needs to leave now to go to work and left the ED.
== END 2025-03-10 21:36 | disposition left against medical advice (07) ==
PROVIDERS: Emergency Provider Emergency Medicine
DX: Z76.0 Encounter for issue of repeat prescription (principal)
CPT/HCPCS: 99281

== ENCOUNTER 2025-03-16 05:04 | Emergency (ER) | payer OTHER, SELFPAY ==
[2025-03-16 05:09] VITALS: BP 105/65; PULSE 90; RESP 20; TEMP 36.4; O2SAT 98; BMI 27.1
--- NOTE | 2025-03-16 05:44 | ED_ITS ---
HPI - General Adult General Chief complaint: General Medical Stated complaint: medication Time Seen by Provider: 03/16/25 05:28 Source: patient Mode of arrival: ambulatory Limitations: no limitations History of Present Illness ED Provider: Dr. De Leon HPI narrative: 59-year-old female presented hospital today for evaluation of medication administration. Patient has history opioid use disorder currently on Suboxone. Patient last Suboxone dosage was this . Patient does have a refilled tomorrow. She does follow up with the Suboxone Clinic here. No other complaints at this time Related Data Previous Rx's ?Medication ?Instructions ?Recorded venlafaxine 150 mg 150 mg PO DAILY #90 caps 03/08 capsule,extended release 24 hr buprenorphine 8 mg-naloxone 2 mg 2 film sublingual KATARZYNA LY #60 ea 07/26/24 sublingual film (Suboxone) buprenorphine 8 mg-naloxone 2 mg 2 film sublingual KATARZYNA LY 30 days 09/20/24 sublingual film (Suboxone) #60 ea buprenorphine 8 mg-naloxone 2 mg 2 film sublingual KATARZYNA LY 30 days 09/25/24 sublingual film (Suboxone) #60 ea buprenorphine 8 mg-naloxone 2 mg 1 film sublingual BID 30 days #60 11/20/24 sublingual film (Suboxone) ea buprenorphine 8 mg-naloxone 2 mg 1 film sublingual BID 30 days #60 01/17/25 sublingual film (Suboxone) ea Allergies Allergy/AdvReac Type Severity Reaction Status Date / Time No Known Allergies Allergy Verified 03/16/25 05:12 Review of Systems Review of Systems: Pertinent review of systems as mentioned in HPI. All other system otherwise negative. [facility] Past Medical History [facility] Narrative: Opioid use disorder Medical History Drug abuse Depression Surgical History H/O tubal ligation Previous section Social History Social History Smoked in Last 30 Days: Yes Use of substances other than those prescribed or required for medical reasons: No Substance Use Type: Marijuana Advance Directives: No Advance Directives Information Provided: Yes Do you have a plan to hurt others: No Plan Patient : No Physical Exam ED Exam Exam: General: Pleasant, no distress, interacting appropriately Head: Normacephalic, atraumatic Skin: Warm and dry Psychiatric: Appropriate mood and thoughts Vital Signs: Vital Signs - 24 hr 03/16/25 05:09 Temperature 97.5 F Pulse Rate 90 Respiratory Rate 20 Blood Pressure 105/65 Pulse Oximetry 98 Oxygen Delivery Method Room Air BMI result Body Mass Index 27.1 Medical Decision Making Medical Decision Making MDM Narrative: 59-year-old female presented hospital today for evaluation of administration of Suboxone. Plan to give patient Suboxone. I reviewed the PDMP she is on 8 mg 2 films daily Patient states she does have a refill prescription tomorrow. She will plan to call the Suboxone Clinic. Differential Diagnosis Differential Diagnoses: The differential diagnosis associated with the presentation includes Medication administration Discharge Plan Discharge Clinical Impression: Encounter for medication administration Patient Disposition: Home, Self-Care Prescriptions: No Action venlafaxine 150 mg capsule,extended release 24hr 150 mg PO DAILY Qty: 90 0RF buprenorphine-naloxone [Suboxone] 8-2 mg film 2 film sublingual DAILY 30 Days Qty: 60 1RF Rx Instructions: place 1 film on inside of (each) cheek buprenorphine-naloxone [Suboxone] 8-2 mg film 2 film sublingual DAILY Qty: 60 1RF buprenorphine-naloxone [Suboxone] 8-2 mg film 1 film sublingual BID 30 Days Qty: 60 1RF buprenorphine-naloxone [Suboxone] 8-2 mg film 2 film sublingual DAILY 30 Days Qty: 60 1RF Rx Instructions: place 1 film on inside of (each) cheek buprenorphine-naloxone [Suboxone] 8-2 mg film 1 film sublingual BID 30 Days Qty: 60 2RF Print Language: French
[2025-03-16 06:13] VITALS: BP 105/65; PULSE 90; RESP 20; TEMP 36.4; O2SAT 98
== END 2025-03-16 06:13 | disposition home or self-care (01) ==
PROVIDERS: Emergency Provider Student in an Organized Health Care Education/Training Program
DX: Z79.891 Long term (current) use of opiate analgesic (principal); Z76.0 Encounter for issue of repeat prescription
CPT/HCPCS: 99283; 99284

== ENCOUNTER 2025-04-18 13:01 | Outpatient (AMB) | payer OTHER, SELFPAY ==
--- NOTE | 2025-05-04 23:20 | MHC.AM.SUB ---
Intake Visit Reasons: MAT Allergies No Known Allergies Allergy (Verified 03/16/25 05:12) HPI HPI MAT: Details: She has no complaints She is taking medication as indicated Review of Systems Const All systems reviewed & are unremarkable except as noted in HPI and below PFSH Medical History Drug abuse Depression Surgical History H/O tubal ligation Previous section Social History Substance Use Type: Marijuana Assessment & Plan Assessment & Plan (1) Opioid use disorder, severe, in sustained remission: Comment: She is stable despite stressors. Code(s): F11.21 - Opioid dependence, in remission Category: Medical Plan Continue current medication See as scheduled. Medications: New buprenorphine-naloxone 8-2 mg (Suboxone) 1 film sublingual BID 60 ea 2RF 30 days
== END 2025-04-18 13:35 | disposition home or self-care (01) ==
LOC: HO.HCC 13:01
PROVIDERS: Visit Provider Internal Medicine
DX: F11.21 Opioid dependence, in remission (principal)
CPT/HCPCS: 99213

== ENCOUNTER → 2025-04-18 13:01 | Outpatient (BNVA) | payer OTHER, SELFPAY | PROVIDERS: Visit Provider Internal Medicine | DX: F11.21 Opioid dependence, in remission (principal) | CPT/HCPCS: 99212 ==